=== PATIENT | male | born 1965 | race Caucasian/White ===

== ENCOUNTER → 2020-04-16 13:50 | Outpatient (BNVA) | payer OTHER, SELFPAY | PROVIDERS: PCP Internal Medicine; Visit Provider Hospitalist | DX: J44.9 Chronic obstructive pulmonary disease, unspecified (principal); J98.4 Other disorders of lung; G47.34 Idiopathic sleep related nonobstructive alveolar hypoventilation; D80.1 Nonfamilial hypogammaglobulinemia; Z86.711 Personal history of pulmonary embolism; Z79.01 Long term (current) use of anticoagulants; Z99.81 Dependence on supplemental oxygen | CPT/HCPCS: 99212 ==

== ENCOUNTER 2020-05-10 12:32 | Emergency (ER) | payer OTHER, SELFPAY ==
[2020-05-10] VITALS (7 sets, daily range): BP systolic 119–160; BP diastolic 72–107; PULSE 80–94; RESP 14–24; TEMP 36.8–36.9; O2SAT 94–100; BMI 39.9
--- NOTE | 2020-05-10 12:49 | ECG_ITS ---
Test Reason : SOB Blood Pressure : / mmHG Vent. Rate : 079 BPM Atrial Rate : 079 BPM P-R Int : 198 ms QRS Dur : 150 ms QT Int : 402 ms P-R-T Axes : 023 -57 049 degrees QTc Int : 460 ms Normal sinus rhythm Left axis deviation Non-specific intra-ventricular conduction block Abnormal ECG No previous ECGs available Referred By: Lenore Casas Electronically Signed By:VILMA DOAN MD
--- NOTE | 2020-05-10 12:49 | XR_ITS ---
EXAMINATION: XR CHEST CLINICAL INFORMATION: Right-sided chest pain COMPARISON: None TECHNIQUE: 2 views of the chest were obtained. FINDINGS: Cardiac silhouette is normal in size and hilar contours are normal. Lungs are adequately expanded. No evidence of pulmonary edema or consolidation. The right lateral and posterior costophrenic sulci are blunted, suggestive of small pleural effusion. No pneumothorax. The visualized bones are intact. XR/XR chest 2V IMPRESSION: * Small right pleural effusion. * No evidence of pneumonia, pulmonary edema or other significant pathology.
--- NOTE | 2020-05-10 12:51 | ED.ABDPAIN ---
HPI - Abdominal Pain General Chief Complaint: Abdominal Pain Stated Complaint: abd pain Time Seen by Provider: 05/10/20 12:42 Source: patient and EMS Mode of arrival: EMS History of Present Illness HPI narrative: 54-year-old male with a past medical history of COPD, diabetes, diverticulitis, gastroparesis, hyperlipidemia, HTN, PE on Xarelto, RBBB, viral meningitis, BIBA c/o worsening right sided chest/flank/RUQ pain and SOB x3 days. Admits symptoms feel similar to prior PE. Admits pain worse with palpation, movement and deep inspiration. Reports chronic nausea/vomiting and cough, unchanged. Denies D/C, fever, chills, urinary symptoms, LE edema MD elicited complaint: abdominal pain and flank pain Related Data Home Medications Medication Instructions Recorded Confirmed allopurinol 100 mg tablet 100 mg PO DAILY 04/16/20 04/16/20 amitriptyline 25 mg tablet 25 mg PO DAILY 04/16/20 04/16/20 aspirin 81 mg tablet,delayed 81 mg PO DAILY 04/16/20 04/16/20 release cyclobenzaprine 5 mg tablet 5 mg PO TID PRN 04/16/20 04/16/20 divalproex 250 mg tablet,delayed 250 mg PO BID 04/16/20 04/16/20 release dupilumab 300 mg/2 mL subcutaneous 300 mg SUBCUT Q2W 04/16/20 04/16/20 syringe furosemide 20 mg tablet 10 mg PO QAM 04/16/20 04/16/20 hydromorphone 2 mg tablet 2 mg PO Q4-6H PRN 04/16/20 04/16/20 magnesium 250 mg tablet 250 mg PO DAILY 04/16/20 04/16/20 mecobalamin (vitamin B12) 1,000 1,000 mcg PO DAILY 04/16/20 04/16/20 mcg chewable tablet ondansetron HCl 8 mg tablet 8 mg PO Q12H 04/16/20 04/16/20 propranolol 40 mg tablet 40 mg PO BID 04/16/20 04/16/20 rivaroxaban 10 mg tablet 10 mg PO DAILY 04/16/20 04/16/20 roflumilast 500 mcg tablet 500 mcg PO DAILY 04/16/20 04/16/20 semaglutide 0.5 mg SUBCUT QWEEK 04/16/20 04/16/20 trimethobenzamide 300 mg capsule 300 mg PO Q6H PRN 04/16/20 04/16/20 Allergies Allergy/AdvReac Type Severity Reaction Status Date / Time Morphine Allergy Severe Rash Uncoded 05/10/20 12:52 Review of Systems Review of Systems Constitutional: No Weight loss, No Fever, No Chills Cardiovascular: +Chest Pain, + SOB, No Dyspnea on Exertion, No Orthopnea, No Edema, No Palpitations Respiratory: +chronic Cough, No Sputum, No Wheezing Gastrointestinal: No Nausea, No Vomiting, No Diarrhea, No Constipation, + Abdominal pain Genitourinary: No irregular bleeding, No Dysuria, No Urinary Frequency, No Hematuria,+ Flank Pain Musculoskeletal: No joint pain, No Myalgias, No Joint Swelling Skin: No Skin Lesions, No rash Yes all other systems are reviewed and are negative Physical Exam Vital Signs: Vital Signs: Last Vital Signs Temp 98.2 F 05/10/20 18:09 Pulse 88 05/10/20 18:09 Resp 22 H 05/10/20 18:09 BP 119/72 05/10/20 18:09 Pulse Ox 99 05/10/20 18:09 Body Mass Index 39.9 Const: General: cooperative Nutritional Appearance: overweight Orientation/consciousness: patient oriented x3 Limitations: no limitations HENMT: Head: Yes normal to inspection Ears: hearing grossly normal bilaterally General nose exam: Normal external nose present Face and sinus: Yes normal facial exam Eyes: General: appearance normal, both eyes and all related structures EOM: EOMs intact bilaterally Neck: Neck: Yes normal visual inspection and Yes no meningeal signs Chest: Chest palpation & inspection: normal inspection of the chest, no crepitus and tenderness (right posteriorolateral ribs) Resp: Effort & Inspection: normal respiratory effort Auscultation: no crackles, no wheezes and diminished lung sounds on the right Cardio: Rate: regular rate Heart sounds: S1 normal heart sound present and S2 normal heart sound present GI: Inspection: Yes normal to inspection Palpation (GI): Soft to palpation, Tenderness to palpation present (GI) in the RUQ, no guarding and not rigid : General: Yes CVA tenderness on the right Skin: Rashes: no rashes Wounds: no wounds Neuro: General: patient oriented x3 and no meningeal signs Gait exam (Neuro): Normal gait present Extrem: Other: No LE edema or calf tenderness General: Yes normal to inspection Course Course Course Narrative: -1429--mild leukocytosis of 11.6, troponin elevated at 89.6 > no available priors (patient admits to elevated troponins in the past), no ischemic EKG changes >> will obtain 3 hour repeat >> obtain CTA to rule out PE, and dry CTAP -1728--repeat troponin 101 > no delta, NC unlikely -175--CTA without evidence of PE. No evidence of dissection. Small right pleural effusion. Subdiaphragmatic small fluid collection with sutures. Postsurgical changes on the lower anterior abdomen wall. Lab and imaging results discussed with patient including worrisome signs and symptoms and strict return precautions. Patient requesting dose of IV Toradol, admits has taken in the past with resolution of headaches/pain. I discussed with him risk of being bleeding being on Xarelto and ASA, he verbalized understanding and would still like Toradol. Discussed will not DC with prescription, but will give 1 time dose prior to DC. Patient verbalized understanding feel safe for discharge home. Patient also admits he is on oxygen at home at night MDM - Abdominal Pain MDM Narrative Medical decision making narrative: 54-year-old male with a past medical history of COPD, diabetes, diverticulitis, gastroparesis, hyperlipidemia, HTN, PE on Xarelto, RBBB, viral meningitis, BIBA c/o worsening right sided chest/flank/RUQ pain and SOB x3 days. On exam tachypneic, NAD/nontoxic appearing, lungs with decreased BS on right, +R CVAT/R rib tto and RUQ ttp. Concern for PE vs pleural effusion or pneumonia vs ?Renal stone. Plan: EKG, labs, CXR, reassess/anticipated other imaging per results Lab Data Result diagrams: 05/10/20 13:01 05/10/20 13:40 Labs: Lab Results 05/10/20 05/10/20 05/10/20 Range/Units 13:00 13:01 13:40 WBC 11.6 H (4.8-10.8) X10*3/uL RBC 4.77 (4.60-5.80) X10*6/uL Hgb 13.3 L (14.0-18.0) g/dl Hct 39.9 L (42-52) % MCV 83.6 (80-98) fL MCH 27.9 (27.0-33.0) pg MCHC 33.3 (31.0-36.0) g/dl RDW 14.6 (11.0-16.0) % Plt Count TNP MPV Not Reportable Immature Gran % (Auto) 0.5 H (0.0-0.4) % Neut % (Auto) 76.0 H (45-73) % Lymph % (Auto) 11.2 L (20-40) % [place] % (Auto) 7.6 (2-11) % Eos % (Auto) 3.8 (0-4) % Baso % (Auto) 0.9 (0-2) % Lymph # (Auto) 1.3 (1.2-4.9) X10*3/uL [place] # (Auto) 0.9 (0.1-1.2) X10*3/uL Eos # (Auto) 0.4 (0.0-0.4) X10*3/uL Baso # (Auto) 0.1 (0.0-0.2) X10*3/uL Abs Immat Gran (auto) 0.06 H (0.00-0.03) X10*3/uL Absolute Neuts (auto) 8.8 H (2.0-8.3) X10*3/uL Absolute Nucleated RBC 0.000 (0.0-0.012) X10*3/uL Nucleated RBC % (auto) 0.0 (0.0-0.2) /100WBC PT Cancelled INR Cancelled APTT Cancelled D-Dimer Cancelled Sodium Cancelled Potassium Cancelled Chloride Cancelled Carbon Dioxide Cancelled Anion Gap Cancelled BUN Cancelled Creatinine Cancelled Estim Creat Clear Calc Cancelled Estimated GFR Cancelled Random Glucose Cancelled Calcium Cancelled Magnesium Cancelled Total Bilirubin Cancelled Direct Bilirubin Cancelled AST Cancelled ALT Cancelled Alkaline Phosphatase Cancelled Troponin I High Sens (<3.5-35.0) ng/L B-Natriuretic Peptide (<100) pg/mL Total Protein Cancelled Albumin Cancelled Lipase Cancelled 05/10/20 05/10/20 05/10/20 Range/Units 13:40 13:40 15:27 WBC (4.8-10.8) X10*3/uL RBC (4.60-5.80) X10*6/uL Hgb (14.0-18.0) g/dl Hct (42-52) % MCV (80-98) fL MCH (27.0-33.0) pg MCHC (31.0-36.0) g/dl RDW (11.0-16.0) % Plt Count MPV Immature Gran % (Auto) (0.0-0.4) % Neut % (Auto) (45-73) % Lymph % (Auto) (20-40) % [place] % (Auto) (2-11) % Eos % (Auto) (0-4) % Baso % (Auto) (0-2) % Lymph # (Auto) (1.2-4.9) X10*3/uL [place] # (Auto) (0.1-1.2) X10*3/uL Eos # (Auto) (0.0-0.4) X10*3/uL Baso # (Auto) (0.0-0.2) X10*3/uL Abs Immat Gran (auto) (0.00-0.03) X10*3/uL Absolute Neuts (auto) (2.0-8.3) X10*3/uL Absolute Nucleated RBC (0.0-0.012) X10*3/uL Nucleated RBC % (auto) (0.0-0.2) /100WBC PT INR APTT Cancelled D-Dimer Cancelled Sodium 131 L Potassium 4.6 Chloride 99 Carbon Dioxide 21 L Anion Gap 16 BUN 8 L Creatinine 0.82 Estim Creat Clear Calc 156.4 Estimated GFR > 60 Random Glucose 217 H Calcium 8.6 Magnesium 1.8 Total Bilirubin 0.6 Direct Bilirubin 0.2 AST 12 ALT 10 Alkaline Phosphatase 94 Troponin I High Sens 89.6 H (<3.5-35.0) ng/L B-Natriuretic Peptide < 10 (<100) pg/mL Total Protein 7.0 Albumin 3.7 Lipase 16 05/10/20 05/10/20 Range/Units 15:27 15:58 WBC (4.8-10.8) X10*3/uL RBC (4.60-5.80) X10*6/uL Hgb (14.0-18.0) g/dl Hct (42-52) % MCV (80-98) fL MCH (27.0-33.0) pg MCHC (31.0-36.0) g/dl RDW (11.0-16.0) % Plt Count MPV Immature Gran % (Auto) (0.0-0.4) % Neut % (Auto) (45-73) % Lymph % (Auto) (20-40) % [place] % (Auto) (2-11) % Eos % (Auto) (0-4) % Baso % (Auto) (0-2) % Lymph # (Auto) (1.2-4.9) X10*3/uL [place] # (Auto) (0.1-1.2) X10*3/uL Eos # (Auto) (0.0-0.4) X10*3/uL Baso # (Auto) (0.0-0.2) X10*3/uL Abs Immat Gran (auto) (0.00-0.03) X10*3/uL Absolute Neuts (auto) (2.0-8.3) X10*3/uL Absolute Nucleated RBC (0.0-0.012) X10*3/uL Nucleated RBC % (auto) (0.0-0.2) /100WBC PT 13.0 INR 1.1 APTT D-Dimer Sodium Potassium Chloride Carbon Dioxide Anion Gap BUN Creatinine Estim Creat Clear Calc Estimated GFR Random Glucose Calcium Magnesium Total Bilirubin Direct Bilirubin AST ALT Alkaline Phosphatase Troponin I High Sens 101.1 H (<3.5-35.0) ng/L B-Natriuretic Peptide (<100) pg/mL Total Protein Albumin Lipase Discharge Plan Discharge Clinical Impression: Pleural effusion on right, Chest pain Patient Disposition: Home, Self-Care Instructions: Pleural Effusion (ED) Additional Instructions: Your CT scan did not show a PE, however did show fluid in your right lung Otherwise her blood work was reassuring today in the ED Continue taking previously prescribed medications at home Called Dr. Mclain, your solar energy systems designer in the morning, to make an appointment as soon as possible If her symptoms persist or worsen, pain becomes unbearable, you develop constant worsening shortness of breath, or chest pain return to the ED Prescriptions: No Action Xarelto 10 mg tablet 10 mg PO DAILY RF: 0 Daliresp 500 mcg tablet 500 mcg PO DAILY RF: 0 magnesium 250 mg tablet 250 mg PO DAILY RF: 0 aspirin 81 mg tablet,delayed release (DR/EC) 81 mg PO DAILY RF: 0 ondansetron HCl 8 mg tablet 8 mg PO Q12H RF: 0 hydromorphone [Dilaudid] 2 mg tablet 2 mg PO Q4-6H PRNRF: 0 mecobalamin (vitamin B12) 1,000 mcg tablet,chewable 1,000 mcg PO DAILY RF: 0 propranolol 40 mg tablet 40 mg PO BID RF: 0 furosemide 20 mg tablet 10 mg PO QAM RF: 0 allopurinol 100 mg tablet 100 mg PO DAILY RF: 0 Ozempic 0.25 mg or 0.5 mg(2 mg/1.5 mL) pen injector 0.5 mg subcut QWEEK RF: 0 trimethobenzamide [Tigan] 300 mg capsule 300 mg PO Q6H PRNRF: 0 Dupixent Syringe 300 mg/2 mL syringe 300 mg subcut Q2W RF: 0 amitriptyline 25 mg tablet 25 mg PO DAILY RF: 0 cyclobenzaprine 5 mg tablet 5 mg PO TID PRNRF: 0 divalproex [Depakote] 250 mg tablet,delayed release (DR/EC) 250 mg PO BID RF: 0 Referrals: Russell Mclain MD [Physician] - 2 days [facility] Past Medical History Source: nursing notes reviewed Medical History (Updated 05/10/20 @ 18:10 by KI Francis) Brain tumor Cholecystectomy planned Chronic restrictive lung disease COPD (chronic obstructive pulmonary disease) Diabetes Diverticulitis Gastroparesis Gout High cholesterol HTN (hypertension) Hypogammaglobulinemia Nocturnal hypoxemia Pulmonary emboli 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) Viral meningitis Surgical History (Updated 05/10/20 @ 12:51 by Shirley Mercedes) History of colon resection Hx of appendectomy Status post plication of diaphragm Family History Family History (Updated 04/16/20 @ 21:18 by Russell Mclain MD) Other HTN (hypertension) Social History Social History (Updated 04/16/20 @ 14:42 by Serenity Herring MA) Alcohol intake: never Smoking Status: Never smoker Smoked in Last 30 Days: No Use of substances other than those prescribed or required for medical reasons: No Advance Directives: No Advance Directives Information Provided: Yes
[2020-05-10 13:09] LABS: Basophils Percent Auto 0.9 % (0-2); Imm Gran Abs Auto 0.06 X10*3/uL (0.00-0.03); Imm Gran Pct Auto 0.5 % (0.0-0.4); Mean Corpuscular HGB Conc 33.3 g/dl (31.0-36.0); Mean Corpuscular Volume 83.6 fL (80-98); Monocytes Percent Auto 7.6 % (2-11); PLT CLUMP 1; SCAN SMEAR FLAG 1
[2020-05-10 13:10] LABS: MANUAL DIFF FLAG NO
[2020-05-10 13:11] LABS: Basophils Absolute Auto 0.1 X10*3/uL (0.0-0.2); Eosinophils Absolute Auto 0.4 X10*3/uL (0.0-0.4); Eosinophils Percent Auto 3.8 % (0-4); Hematocrit 39.9 % (42-52); Hemoglobin 13.3 g/dl (14.0-18.0); Lymphocytes Absolute Auto 1.3 X10*3/uL (1.2-4.9); Lymphocytes Percent Auto 11.2 % (20-40); Mean Corpuscular Hemoglobin 27.9 pg (27.0-33.0); Monocytes Absolute Auto 0.9 X10*3/uL (0.1-1.2); Neutrophils Absolute Auto 8.8 X10*3/uL (2.0-8.3); Red Blood Count 4.77 X10*6/uL (4.60-5.80); Red Cell Distribution Width 14.6 % (11.0-16.0); White Blood Count 11.6 X10*3/uL (4.8-10.8)
[2020-05-10] MEDS: HYDROmorphone HCl 1 MG/ML SYRINGE IVPUSH ×2 (13:20→15:39)
[2020-05-10 14:15] LABS: Alanine Aminotransferase 10 U/L (0-40); Albumin Level 3.7 g/dL (3.5-5.0); Alkaline Phosphatase 94 U/L (39-117); Anion Gap 16 (12-20); Aspartate Amino Transferase 12 U/L (5-37); Bilirubin Direct 0.2 mg/dL (0.0-0.5); Bilirubin Total 0.6 mg/dL (0.0-1.0); Blood Urea Nitrogen 8 mg/dL (9-16); Calcium 8.6 mg/dL (8.4-10.2); Carbon Dioxide 21 mmol/L (22-29); Chloride 99 mmol/L (96-108); Creatinine Clr Calc Pharmacy 156.4; Estimated Glomerular Filt Rate > 60; Glucose Random 217 mg/dL (60-115); Lipase 16 U/L (8-78); Magnesium 1.8 mg/dL (1.6-2.6); Potassium 4.6 mmol/l (3.3-5.1); Sodium 131 mmol/L (135-145)
[2020-05-10 14:23] LABS: B Type Natriuretic Peptide < 10 pg/mL (<100); Troponin-I High Sensitivity 89.6 ng/L (<3.5-35.0)
--- NOTE | 2020-05-10 14:33 | CT_ITS ---
EXAMINATION: CTA CHEST. CT ABDOMEN AND PELVIS WITHOUT CONTRAST. CLINICAL INFORMATION: Right pleural effusion. Chest pain. Rule out PE. Right flank pain. COMPARISON: None TECHNIQUE: 5 minutes and axial and reformatted 3 mm thin coronal and sagittal and oblique views of chest were obtained following IV 100 mL Omnipaque 350. Subsequently 5 minutes and axial and reformatted 3 mm thin sagittal coronal images of abdomen and pelvis were obtained. DLP [id number] FINDINGS: CHEST: There is good opacification bariatric transvaginal without any intraluminal filling defect or narrowing. The thoracic aorta is of normal caliber. No aortic dissection or effusion seen. The heart size is normal. There is mild coronary artery calcifications. No pericardial effusion seen. No abnormal size mediastinal lymph nodes. The thyroid lobes are symmetrical and normal. The central airway appears patent. There is small right pleural effusion. No calcified pleural plaques or thickening seen. The lungs are well-expanded patchy atelectatic changes right lung base. The axilla and chest wall appears normal. No bony thorax abnormality seen. ABDOMEN AND PELVIS: There are post surgical sutures are mesh in the right subdiaphragmatic region with soft tissue density likely postoperative changes/granulation tissue. The soft tissue collection measures 6.5 x 2.8 cm on sagittal image number 100/11. There is mild elevated right hemidiaphragm. The left hemidiaphragm is unremarkable. Visualized liver, spleen, pancreas and bilateral adrenal glands are unremarkable. The gallbladder has been surgically removed. There is an anastomotic suture line in the mid pelvis likely from previous intervention. Scattered stool and gas visualized throughout the colon without any significant distention. The small bowel loops are of normal caliber. A few scattered nondilated small bowel air-fluid levels in the mid pelvis anterior to the bladder. There are surgical margarita scattered throughout the mesentery. No free air or free fluid seen. Postsurgical changes are seen along the anterior abdominal wall. There is small midabdomen wall dehiscence with small hernia containing fat. The neck is 2.4 cm wide. Both kidneys are normal size, shape and position. There is normal radiopaque renal calculi, renal mass or hydronephrosis. The right kidney is transversely oriented in AP direction. Minimal bilateral perinephric stranding is seen. The abdominal aorta is normal caliber. There are small punctate subcentimeter retroperitoneal lymph nodes. Largest 9 mm lymph node left para-aortic region image 40/8. Imaging through the pelvis reveals unremarkable urinary bladder the prostate gland is normal size with central gland calcifications. Bone windows reveal mild ventral spondylosis lower dorsal spine. No lytic or sclerotic process seen. CT/CT angio chest PE protocol IMPRESSION: No evidence of PE. No evidence of aortic dissection. There is a small right pleural effusion. There is a subdiaphragmatic small fluid collection with sutures. Fluid collection measures 6.5 x 2.8 cm. Previous intervention, postsurgical changes. Correlate with clinical history. Postsurgical changes along the lower anterior abdominal wall. There is a small midline mid abdominal wall hernia containing fat. There is an anastomotic suture line along the proximal sigmoid/descending colon with patent lumen. There are surgical margarita scattered throughout the mesentery from previous intervention/lymph node dissection. Correlate with clinical history.
--- NOTE | 2020-05-10 15:30 | PC.NURSE ---
Pt difficult stick, multiple rns at bedside, Jayce rn obtained 20g to l ac w/ U/S. Plan for CTA, pt aware and agreeable. Requesting medication for increasing R sided flank/upper back pain, provider aware.
[2020-05-10 15:46] LABS: INTERNATIONAL NORM RATIO 1.1 (0.9-1.1)
[2020-05-10 16:39] LABS: Troponin-I High Sensitivity 101.1 ng/L (<3.5-35.0)
--- NOTE | 2020-05-10 16:56 | PC.NURSE ---
Previous Iv infiltrated in L ac, removed and gina forte placed 20g r ac. pt back from ct- resting in bed, denies needs or complaints,
[2020-05-10] MEDS: iohexoL 350 MG/ML 100 ML INFUS..BTL IV (16:58)
[2020-05-10 18:20] LABS: Glucose Urine UA NEG (NEG); Leukocyte Esterase Urine NEG (NEG); Nitrite Urine NEG (NEG); PH 6.5 (5.0-8.0); Urine Blood NEG (NEG); Urine Ketones NEG (NEG); Urine Protein NEG (NEG-TRACE)
[2020-05-10 18:22] LABS: Appearance Urine CLEAR; Color Urine YELLOW
[2020-05-10] MEDS: Ketorolac Tromethamine 15 MG/ML VIAL IVPUSH (18:28)
[2020-05-10 18:36] LABS: D Dimer 249 NG/ML
[2020-05-10 18:42] LABS: Partial Thromboplastin Time 22.9 SEC (24.1-38.0)
== END 2020-05-10 18:36 | disposition home or self-care (01) ==
PROVIDERS: Physician Assistant; Emergency Provider Internal Medicine; PCP Internal Medicine
DX: J90 Pleural effusion, not elsewhere classified (principal); J44.9 Chronic obstructive pulmonary disease, unspecified; R10.11 Right upper quadrant pain; R07.9 Chest pain, unspecified; Z79.899 Other long term (current) drug therapy; Z79.01 Long term (current) use of anticoagulants; Z86.711 Personal history of pulmonary embolism
CPT/HCPCS: 36415; 71046; 71275; 74176; 80048; 80076; 81003; 83690; 83735; 83880; 84484; 85025; 85379; 85610; 85730; 93005; 96374; 96375; 96376; 99284; J1170; J1885; Q9967

== ENCOUNTER 2020-05-14 14:41 | Outpatient (REF) | payer OTHER, SELFPAY ==
--- NOTE | 2020-05-14 16:02 | XR_ITS ---
EXAMINATION: XR CHEST CLINICAL INFORMATION: Chest pain. COMPARISON: None TECHNIQUE: 2 views of the chest were obtained. FINDINGS: The right lung is hyperexpanded with mild blunting of right CP angle from pleural thickening or pleural effusion. Patient did have pleural effusion on previous CT chest 05/10/2020. There is likely underlying atelectasis as well. Left lung is expanded and clear. The heart size and pulmonary vascularity is normal. No gross bony abnormality seen. XR/XR chest 2V IMPRESSION: Hypoexpanded right lung with underlying right pleural effusion/thickening and minimal atelectasis.
[2020-05-14 16:18] LABS: MANUAL DIFF FLAG NO
[2020-05-14 16:21] LABS: Basophils Absolute Auto 0.1 X10*3/uL (0.0-0.2); Basophils Percent Auto 0.8 % (0-2); Eosinophils Absolute Auto 0.5 X10*3/uL (0.0-0.4); Eosinophils Percent Auto 4.9 % (0-4); Hematocrit 44.1 % (42-52); Hemoglobin 14.5 g/dl (14.0-18.0); Imm Gran Abs Auto 0.05 X10*3/uL (0.00-0.03); Imm Gran Pct Auto 0.5 % (0.0-0.4); Lymphocytes Absolute Auto 1.5 X10*3/uL (1.2-4.9); Lymphocytes Percent Auto 16.1 % (20-40); Mean Corpuscular HGB Conc 32.9 g/dl (31.0-36.0); Mean Corpuscular Hemoglobin 27.2 pg (27.0-33.0); Mean Corpuscular Volume 82.6 fL (80-98); Mean Platelet Volume 9.2 fL (9.4-12.4); Monocytes Absolute Auto 0.7 X10*3/uL (0.1-1.2); Monocytes Percent Auto 7.4 % (2-11); Neutrophils Absolute Auto 6.6 X10*3/uL (2.0-8.3); Neutrophils Percent Auto 70.3 % (45-73); Platelet Count 532 X10*3/uL (160-400); Red Blood Count 5.34 X10*6/uL (4.60-5.80); Red Cell Distribution Width 14.6 % (11.0-16.0); White Blood Count 9.4 X10*3/uL (4.8-10.8)
[2020-05-14 16:36] LABS: Anion Gap 15 (12-20); Blood Urea Nitrogen 12 mg/dL (9-16); Calcium 10.1 mg/dL (8.4-10.2); Carbon Dioxide 24 mmol/L (22-29); Chloride 99 mmol/L (96-108); Estimated Glomerular Filt Rate > 60; Glucose Random 229 mg/dL (60-115); Potassium 4.7 mmol/l (3.3-5.1); Sodium 133 mmol/L (135-145)
[2020-05-14 17:20] LABS: Erythrocyte Sedimentation Rate 62 MM/HR (0-15)
[2020-05-14 18:17] LABS: Troponin-I High Sensitivity 89.4 ng/L (<3.5-35.0)
== END 2020-05-14 14:42 | disposition home or self-care (01) ==
LOC: HO.LAB 14:41
PROVIDERS: PCP Internal Medicine; Visit Provider Hospitalist
DX: R07.9 Chest pain, unspecified (principal); D80.1 Nonfamilial hypogammaglobulinemia; J44.9 Chronic obstructive pulmonary disease, unspecified; G47.34 Idiopathic sleep related nonobstructive alveolar hypoventilation; I26.99 Other pulmonary embolism without acute cor pulmonale; J98.4 Other disorders of lung; J98.6 Disorders of diaphragm; J18.9 Pneumonia, unspecified organism; J90 Pleural effusion, not elsewhere classified
CPT/HCPCS: 36415; 71046; 80048; 84484; 85025; 85652; 99212

== ENCOUNTER 2020-05-14 18:46 | Emergency (ER) | payer OTHER, SELFPAY ==
[2020-05-14 19:29] VITALS: BP 147/81; PULSE 78; RESP 18; TEMP 36.7; O2SAT 97; BMI 38.0
--- NOTE | 2020-05-14 20:39 | ED.RECABL ---
HPI - Recheck/Abnormal Lab/Rx General Chief Complaint: Recheck/Abnormal Lab/Rx Stated Complaint: ABNORMAL LABS Time Seen by Provider: 05/14/20 20:39 Source: patient Mode of arrival: ambulatory Limitations: no limitations History of Present Illness HPI narrative: patient with chronic Restrictive lung condition followed by her ammonium nitrate crystallizer been having right-sided chest pain for a while was seen here on 05/10 had elevated high sensitive troponin without any significant delta change today again patient had troponin done as outpatient which was elevated to 89.4 on 05/10 was 101.1 patient denies any left-sided chest pain no shortness of breath no diaphoresis no left arm pain pain increases on deep inspiration and palpation on the right side similar to when he came on 05/10 patient had a history of PE in the past and had CTA on 05/10 which was negative for PE , patient is on Xarelto Related Data Home Medications Medication Instructions Recorded Confirmed allopurinol 100 mg tablet 100 mg PO DAILY 04/16/20 04/16/20 amitriptyline 25 mg tablet 25 mg PO DAILY 04/16/20 04/16/20 aspirin 81 mg tablet,delayed 81 mg PO DAILY 04/16/20 04/16/20 release cyclobenzaprine 5 mg tablet 5 mg PO TID PRN 04/16/20 04/16/20 divalproex 250 mg tablet,delayed 250 mg PO BID 04/16/20 04/16/20 release dupilumab 300 mg/2 mL subcutaneous 300 mg SUBCUT Q2W 04/16/20 04/16/20 syringe furosemide 20 mg tablet 10 mg PO QAM 04/16/20 04/16/20 hydromorphone 2 mg tablet 2 mg PO Q4-6H PRN 04/16/20 04/16/20 magnesium 250 mg tablet 250 mg PO DAILY 04/16/20 04/16/20 mecobalamin (vitamin B12) 1,000 1,000 mcg PO DAILY 04/16/20 04/16/20 mcg chewable tablet ondansetron HCl 8 mg tablet 8 mg PO Q12H 04/16/20 04/16/20 propranolol 40 mg tablet 40 mg PO BID 04/16/20 04/16/20 rivaroxaban 10 mg tablet 10 mg PO DAILY 04/16/20 04/16/20 roflumilast 500 mcg tablet 500 mcg PO DAILY 04/16/20 04/16/20 semaglutide 0.5 mg SUBCUT QWEEK 04/16/20 04/16/20 trimethobenzamide 300 mg capsule 300 mg PO Q6H PRN 04/16/20 04/16/20 Previous Rx's Medication Instructions Recorded levofloxacin 500 mg tablet 500 mg PO DAILY #10 tab 05/14/20 Allergies Allergy/AdvReac Type Severity Reaction Status Date / Time Morphine Allergy Severe Rash Uncoded 05/10/20 12:52 Review of Systems Review of Systems: REVIEW OF SYSTEMS: Pertinent positives and negatives are stated above in the history. GEN: no fevers, chills, fatigue HEENT: no nasal congestion, sore throat, ear pain NEURO: no headache, dizziness, focal weakness PULM: no cough, shortness of breath CV: no palpitations, LE edema ABD: no abdominal pain, nausea, vomiting, diarrhea : no dysuria, urgency, frequency SKIN: no rash ROS otherwise negative x 10 PMFSH Past Medical History Medical History Brain tumor Chest pain Cholecystectomy planned Chronic restrictive lung disease COPD (chronic obstructive pulmonary disease) Diabetes Diverticulitis Gastroparesis Gout High cholesterol HTN (hypertension) Hypogammaglobulinemia Nocturnal hypoxemia Paralysis, diaphragm Pleural effusion Pneumonia Pulmonary emboli 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) Viral meningitis Surgical History History of colon resection Hx of appendectomy Status post plication of diaphragm Family History Family History Other HTN (hypertension) Social History Social History Alcohol intake: never Smoking Status: Unknown if ever smoked Use of substances other than those prescribed or required for medical reasons: No Advance Directives: No Advance Directives Information Provided: Yes Physical Exam Vital Signs: Vital Signs: Last Vital Signs Temp 98.3 F 05/14/20 21:13 Pulse 99 05/14/20 22:32 Resp 16 05/14/20 22:32 BP 162/94 H 05/14/20 22:32 Pulse Ox 99 05/14/20 22:32 Body Mass Index 38.0 VITAL SIGNS: Reviewed. GENERAL: Well developed, well nourished, in no acute distress. HEAD: Normocephalic/atraumatic, EYES: PERRLA No pallor/icterus noted OROPHARYNX: Oral mucosa moist no oral lesions NECK: Supple, no adenopathy LUNGS: Normal breath sounds. No adventitious sounds or accessory muscle use tenderness on the right lower ribs by palpation CARDIOVASCULAR: Regular rate and rhythm without noted murmurs, no JVD or lower extremity edema. ABDOMEN: Soft, non-tender, non-distended with normal bowel sounds. No rigidity. No guarding. No palpable masses or hernias noted MUSCULOSKELETAL: No tenderness, deformities, EXTREMITIES: No cyanosis or edema. SKIN: no rashes, ulcerations, jaundice, pallor NEUROLOGIC: Alert and oriented x 3. Strength and sensation to light touch were grossly intact normal speech MDM - Recheck/Abnormal Lab/Rx MDM Narrative Medical decision making narrative: patient with atypical pain on the right side of the chest for last few days had multiple sets of troponin which were without any significant delta increase patient has a plan to see fuselage framer at [facility] advised to follow-up with him already on Xarelto Medical Records Attestation: I reviewed the patient's medical records. Lab Data Attestation: I reviewed the patient's lab results. Labs: Lab Results 05/14/20 Range/Units 21:15 Troponin I High Sens 85.2 H (<3.5-35.0) ng/L ECG Data ECG interpretation date: 05/14/20 Interpretation: normal sinus rhythm ventricular rate 89 right bundle branch block left anterior fascicular block, normal axis, no acute ischemic changes impression no acute change from EKG on 05/10 Discharge Plan Discharge Clinical Impression: Chest pain Patient Disposition: Home, Self-Care Instructions: Chest Pain (ED) Additional Instructions: Follow-up with fuselage framer as scheduled for further workup. Prescriptions: No Action Xarelto 10 mg tablet 10 mg PO DAILY RF: 0 Daliresp 500 mcg tablet 500 mcg PO DAILY RF: 0 magnesium 250 mg tablet 250 mg PO DAILY RF: 0 aspirin 81 mg tablet,delayed release (DR/EC) 81 mg PO DAILY RF: 0 ondansetron HCl 8 mg tablet 8 mg PO Q12H RF: 0 hydromorphone [Dilaudid] 2 mg tablet 2 mg PO Q4-6H PRNRF: 0 mecobalamin (vitamin B12) 1,000 mcg tablet,chewable 1,000 mcg PO DAILY RF: 0 propranolol 40 mg tablet 40 mg PO BID RF: 0 furosemide 20 mg tablet 10 mg PO QAM RF: 0 allopurinol 100 mg tablet 100 mg PO DAILY RF: 0 Ozempic 0.25 mg or 0.5 mg(2 mg/1.5 mL) pen injector 0.5 mg subcut QWEEK RF: 0 trimethobenzamide [Tigan] 300 mg capsule 300 mg PO Q6H PRNRF: 0 Dupixent Syringe 300 mg/2 mL syringe 300 mg subcut Q2W RF: 0 amitriptyline 25 mg tablet 25 mg PO DAILY RF: 0 cyclobenzaprine 5 mg tablet 5 mg PO TID PRNRF: 0 divalproex [Depakote] 250 mg tablet,delayed release (DR/EC) 250 mg PO BID RF: 0 levofloxacin 500 mg tablet 500 mg PO DAILY Qty: 10 RF: 0 Interventions: ED Discharge Assessment Last Done: 05/14/20 22:46 Discharge Date/Time: 05/14/20 22:45
--- NOTE | 2020-05-14 20:41 | ECG_ITS ---
Test Reason : CP Blood Pressure : / mmHG Vent. Rate : 089 BPM Atrial Rate : 089 BPM P-R Int : 176 ms QRS Dur : 154 ms QT Int : 412 ms P-R-T Axes : 011 -83 044 degrees QTc Int : 501 ms Normal sinus rhythm Right bundle branch block Left anterior fascicular block Bifascicular block Lateral infarct (cited on or before 14-MAY-2020) Abnormal ECG When compared with ECG of 10-MAY-2020 13:11, Right bundle branch block has replaced Non-specific intra-ventricular conduction block Referred By: Dru Villalpando Electronically Signed By:HERNAN ASHLEY MD
[2020-05-14 21:13] VITALS: BP 148/80; PULSE 88; RESP 25; TEMP 36.8; O2SAT 95
[2020-05-14 21:57] LABS: Troponin-I High Sensitivity 85.2 ng/L (<3.5-35.0)
[2020-05-14 22:32] VITALS: BP 162/94; PULSE 99; RESP 16; O2SAT 99
== END 2020-05-14 22:45 | disposition home or self-care (01) ==
PROVIDERS: Emergency Provider Internal Medicine
DX: R07.9 Chest pain, unspecified (principal); Z86.711 Personal history of pulmonary embolism; Z79.01 Long term (current) use of anticoagulants; Z79.82 Long term (current) use of aspirin
CPT/HCPCS: 84484; 93005; 99283; 99284

== ENCOUNTER → 2020-05-22 13:48 | Outpatient (BNVA) | payer OTHER, SELFPAY | PROVIDERS: PCP Internal Medicine; Visit Provider Hospitalist | DX: J90 Pleural effusion, not elsewhere classified (principal); J18.9 Pneumonia, unspecified organism; J98.6 Disorders of diaphragm; J98.4 Other disorders of lung; R07.9 Chest pain, unspecified; G47.34 Idiopathic sleep related nonobstructive alveolar hypoventilation; I26.99 Other pulmonary embolism without acute cor pulmonale; D80.1 Nonfamilial hypogammaglobulinemia; J44.9 Chronic obstructive pulmonary disease, unspecified | CPT/HCPCS: 99212 ==

== ENCOUNTER → 2022-06-14 09:01 | Outpatient (BNVA) | payer OTHER, SELFPAY | PROVIDERS: PCP Internal Medicine; Visit Provider Hospitalist | DX: G47.33 Obstructive sleep apnea (adult) (pediatric) (principal); G47.34 Idiopathic sleep related nonobstructive alveolar hypoventilation; J44.9 Chronic obstructive pulmonary disease, unspecified; J98.4 Other disorders of lung; J98.6 Disorders of diaphragm; D80.1 Nonfamilial hypogammaglobulinemia; I26.99 Other pulmonary embolism without acute cor pulmonale; R07.9 Chest pain, unspecified | CPT/HCPCS: 99212 ==

== ENCOUNTER → 2022-08-10 22:26 | Outpatient (REF) | payer OTHER, SELFPAY | LOC: HO.SL 22:26 | PROVIDERS: PCP Internal Medicine; Visit Provider Hospitalist | DX: G47.33 Obstructive sleep apnea (adult) (pediatric) (principal); G47.34 Idiopathic sleep related nonobstructive alveolar hypoventilation | CPT/HCPCS: 95810 ==

== ENCOUNTER → 2022-09-14 11:19 | Outpatient (BNVA) | payer OTHER, SELFPAY | PROVIDERS: PCP Internal Medicine; Visit Provider Hospitalist | DX: G47.33 Obstructive sleep apnea (adult) (pediatric) (principal); J98.6 Disorders of diaphragm; J44.9 Chronic obstructive pulmonary disease, unspecified; J98.4 Other disorders of lung; R07.9 Chest pain, unspecified; I26.99 Other pulmonary embolism without acute cor pulmonale; D80.1 Nonfamilial hypogammaglobulinemia | CPT/HCPCS: 99212 ==

== ENCOUNTER 2023-05-03 09:05 | Outpatient (AMB) | payer OTHER, SELFPAY ==
--- NOTE | 2023-05-03 09:12 | A.OFFVIS_ITS ---
Intake Vital Signs 05/03/23 09:13 Height 6 ft 3 in Weight 255 lb BMI 31.9 BP 132/70 Blood Pressure Location Lt brachial Position Sitting Pulse 90 Pulse Source Pulse Oximeter Pulse Oximetry (%) 97 Oxygen Delivery Method Room Air Intake Visit Reasons: Obstructive sleep apnea Edge [employer] Required: No Allergies Morphine Allergy (Severe, Uncoded 05/03/23 09:15) Rash HPI HPI Comments History of Present Illness Details The patient is a 57-year-old gentleman here for pulmonary follow-up visit. 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 More recently he was admitted to [facility] diagnosed with viral meningitis. Per report the patient has stated that he developed varicella meningitis. He was treated with antiviral therapy and now is better. But, suffering from significant headaches. He is on numerous medications for the headaches and only partial improvement of the symptoms. Having hard time sleeping. While he was in the hospital he did have his blood work done including IgG level that was significantly low. We did go to the other laboratory symptoms of [place] demonstrating again significant decrease of the IgG level suggesting an immunodeficiency. The patient has been getting recurrent respiratory infections and now with significant meningitis. The patient will benefit from IVIG therapy. I will recheck all his antibody levels at this time. The patient does have a gammopathy history followed by Hematology. 05/14/2020 the patient is [facility]. He has been complaining worsening pleuritic right-sided chest discomfort. Moderate to severe. It actually was so severe that he had to come to the ER. He was evaluated here. He did have blood work done demonstrating an elevated D-dimer and also demonstrated a significantly elevated troponin I. The patient did have an EKG which showed abnormalities. He also had a CTA that was negative for PE although he did have a right-sided pleural effusion along with a small area of airspace disease. This pain likely related to underlying pleuritic discomfort from the pleural effusion and pleurisy. I am concerned that he had of significantly elevated troponin I. Because of the shortness of breath that has been having along with discomfort I did have him go for a 6 minutes walk test. His oxygenation did drop to 88% after 2 minutes walking. His heart rate was in the low 100s. He was placed on 2 L and his oxygen with activity improved to about 94%. The patient at this time requires oxygen. This is likely due to his COPD and history of thromboembolic disease. I will have a repeat the troponin I. If the troponin I continues to be elevated I will refer him to the ER. Otherwise he knows to call his vocational auto body instructor. Will also treating for a underlying lower respiratory infection. 05/22/2020 the patient is here for nirav bryant follow-up visit. When we last spoke she did have elevations in his cardiac enzymes and I did recommend he go to the ER. Initially came here and then to [facility]. He was briefly admitted to the hospital and seen by his vocational auto body instructor. He was found to be stable from a cardiac standpoint. In the meantime he was treated with antibiotics for what appeared to be a right lower lobe pneumonia with a parapneumonic effusion. Currently still feeling a little discomfort in the chest area but overall he is feeling better. He continues use the oxygen with good effect at nighttime. However, he still waiting for his portable tanks from the [employer]. Therefore I did call the [employer] to try to facilitate the delivery of portable tanks and hopefully a small conserving device that he could use outside of the home. 06/14/2022 the patient is here for a nirav bryant follow-up visit. He has been complaining of increasing shortness of breath and dizziness. Moderate severity. Recently he was hospitalized at [facility] after having chest pains and abnormal EKG concerning with a non ST elevation ID. He has was transferred over to [facility] where he underwent a cardiac catheterization. No evidence of any obstructive coronary artery disease. However, the patient noticed to have severe hypertrophic Changes to the left ventricle. The echo ruled out the possibility of a outflow obstruction. Currently plan to undergo an MRI of the heart to assess for infiltrative cardiac conditions including amyloidosis. In the meantime the patient stands that untreated sleep apnea can resulting worsening cardiovascular disease. He does have underlying sleep apnea history. He has significant snoring and significant daytime drowsiness. In view of his heart disease I am requesting an in-lab sleep study. His [place] score is elevated 06/04. 09/14/2022 the patient is here for a nirav bryant follow-up visit. Overall he is feeling a lot better. He has been very motivated about losing weight. He is eating eating lasting trying to exercise. Still gets very winded with activity. He did have his cardiac MRI demonstrating hypertrophic cardiomyopathy. Exp lained to him that he needs to make sure that his heart rate stays within the target range to minimize on his worsening shortness of breath. As far as his sleep is better now that he has lost weight. His [place] score is better 6/24. His in-lab sleep study was suboptimal at the patient had a hard time sleeping. Although his AHI was within normal limits at 2.1 any actually did not desaturate which is reassuring. The patient still using Daliresp. The Daliresp medications been affecting beneficial and has helped his respiratory status dramatically. Therefore I believe is important for him to continue. He continues on the anticoagulation therapy without any adverse effects. Otherwise patient is doing well will follow-up in a year's time. 05/03/2023 the patient is here for a pul [facility] follow-up visit. The patient overall has been doing fair. He has been weaning off his hydromorphone and therefore has had a lot of adjustment because of that. But he is happy that he is weaning off at this time. From a respiratory status the patient is doing well. He continues on the Daliresp which is helping with his chronic bronchitis and also has his rescue inhaler. He was recently admitted to [facility] back in February after developing COVID. The patient was able to recover fairly quickly and now is back to his baseline. He is sleeping well he is not using any CPAP. He is using the trazodone for sleep aid. He is having significant neuropathic pain that is also affecting his sleep therefore will add gabapentin to his sleep regimen. Hopefully he can tolerate 300 mg and is not increase to 600 mg. She she continues on Xarelto for the anticoagulation for the history of pulmonary emboli. This will be a lifelong as long as he can tolerate it. Otherwise patient is without any other complaints. [facility] Medical History (Updated 05/06/23 @ 17:48 by Russell Mclain MD) Nocturnal hypoxia TAMIKA (obstructive sleep apnea) Pleural effusion Pneumonia Paralysis, diaphragm Chest pain Gout Diabetes High cholesterol HTN (hypertension) Viral meningitis Brain tumor 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) Gastroparesis Diverticulitis Cholecystectomy planned COPD (chronic obstructive pulmonary disease) Nocturnal hypoxemia Pulmonary emboli Chronic restrictive lung disease Hypogammaglobulinemia Surgical History Status post plication of diaphragm History of colon resection Hx of appendectomy Family History Other HTN (hypertension) (Updated 06/14/22 @ 10:10 by TIMUR Espino) Alcohol intake: never Patient Tobacco Use Status: Never used Tobacco Review of Systems Const Denies daytime sleepiness, Denies difficulty sleeping, Denies fatigue, Reports headache(s), Denies malaise, Denies night sweats, Reports snoring, Denies stops breathing during sleep and Reports weight loss ENT Denies change in voice, Reports headache(s), Denies lip swelling, Denies mouth pain, Reports nasal congestion, Reports nasal discharge and Denies tongue swelling Card Denies chest pain and Reports dyspnea on exertion Resp Reports cough, Denies pain on inspiration, Reports dyspnea on exertion and Reports snoring GI Denies abdominal pain Musc Denies no additional complaints Neuro Denies Neuro-related abnormal movements and Reports headache(s) Psych Denies no additional complaints Endo Denies fatigue Adeel/Lymph Denies easy bleeding and Denies lymphadenopathy Aller/Immun Denies lip swelling and Denies tongue swelling Physical Exam Vital Signs: Last Vital Signs Pulse 90 05/03/23 09:13 BP 132/70 05/03/23 09:13 Pulse Ox 97 05/03/23 09:13 Oxygen Delivery Method Room Air 05/03/23 09:13 BMI result Body Mass Index 31.9 Const General: cooperative Nutritional Appearance: overweight Orientation/consciousness: patient oriented x3 Limitations: no limitations HEENT Head: Yes normal to inspection Ears: hearing grossly normal bilaterally General nose exam: Normal external nose present Face and sinus: Yes normal facial exam Eyes General: appearance normal, both eyes and all related structures EOM: EOMs intact bilaterally Neck Neck: Yes normal visual inspection and Yes no meningeal signs Chest Chest palpation & inspection: normal inspection of the chest and no crepitus Resp Effort & Inspection: normal respiratory effort Auscultation: no crackles, no wheezes and diminished lung sounds on the right Cardio Rate: regular rate Heart sounds: S1 normal heart sound present and S2 normal heart sound present GI Inspection: Yes normal to inspection Palpation (GI): Soft to palpation, Tenderness to palpation present (GI) in the RUQ, no guarding and not rigid General: Yes CVA tenderness on the right Back/Spine/Pelvis Back: CVA tenderness Skin Rashes: no rashes Wounds: no wounds Neuro General: patient oriented x3 and no meningeal signs Gait exam (Neuro): Normal gait present Extrem Other: No LE edema or calf tenderness General: Yes normal to inspection Assessment & Plan Assessment & Plan (1) Paralysis, diaphragm: Comment: Status post surgery Code(s): J98.6 - Disorders of diaphragm (2) COPD (chronic obstructive pulmonary disease): Code(s): J44.9 - Chronic obstructive pulmonary disease, unspecified Qualifiers: COPD type: chronic bronchitis Chronic bronchitis type: mixed simple and mucopurulent Qualified Code(s): J41.8 - Mixed simple and mucopurulent chronic bronchitis Plan: Respiratory therapy Needs to start oxygen supplementation with activity, cont with nocturnal oxygen (3) Pulmonary emboli: Code(s): I26.99 - Other pulmonary embolism without acute cor pulmonale Qualifiers: Acute cor pulmonale presence: without acute cor pulmonale Chronicity: chronic Pulmonary embolism type: other Qualified Code(s): I27.82 - Chronic pulmonary embolism (4) Chronic restrictive lung disease: Comment: Multifactorial Code(s): J98.4 - Other disorders of lung (5) Hypogammaglobulinemia: Code(s): D80.1 - Nonfamilial hypogammaglobulinemia Plan: recheck levels (6) TAMIKA (obstructive sleep apnea): Comment: limitted PSG. No significant Sleep apea noted Code(s): G47.33 - Obstructive sleep apnea (adult) (pediatric) Plan Continue oxygen continue life long anticoagulation, Xorelto Continue Daliresp continue trazodone start Gabapentin 300mg ->600mg F/U 12 months Medications: New gabapentin 300 mg PO BEDTIME 30 days 60 caps 6RF Coding Level of Care Code Est Pt Level 4 (46180) Diagnoses Paralysis, diaphragm J98.6 Mixed simple and mucopurulent chronic bronchitis J41.8 COPD type: chronic bronchitis Chronic bronchitis type: mixed simple and mucopurulent Other chronic pulmonary embolism without acute cor pulmonale I27.82 Acute cor pulmonale presence: without acute cor pulmonale Chronicity: chronic Pulmonary embolism type: other Chronic restrictive lung disease J98.4 Hypogammaglobulinemia D80.1 TAMIKA (obstructive sleep apnea) G47.33 Time Spent (min) 16
[2023-05-03 09:13] VITALS: BP 132/70; PULSE 90; O2SAT 97; BMI 31.9
== END 2023-05-03 09:34 | disposition home or self-care (01) ==
PROVIDERS: PCP Internal Medicine; Visit Provider Hospitalist
DX: J98.6 Disorders of diaphragm (principal); J41.8 Mixed simple and mucopurulent chronic bronchitis; I27.82 Chronic pulmonary embolism; J98.4 Other disorders of lung; D80.1 Nonfamilial hypogammaglobulinemia; G47.33 Obstructive sleep apnea (adult) (pediatric)
CPT/HCPCS: 99214

== ENCOUNTER → 2023-05-03 09:05 | Outpatient (BNVA) | payer OTHER, SELFPAY | PROVIDERS: PCP Internal Medicine; Visit Provider Hospitalist | DX: J41.8 Mixed simple and mucopurulent chronic bronchitis (principal); G47.33 Obstructive sleep apnea (adult) (pediatric); J96.90 Respiratory failure, unspecified, unspecified whether with hypoxia or hypercapnia; J98.6 Disorders of diaphragm; J98.4 Other disorders of lung; I27.82 Chronic pulmonary embolism; Z99.89 Dependence on other enabling machines and devices; Z79.01 Long term (current) use of anticoagulants; Z99.81 Dependence on supplemental oxygen; D80.1 Nonfamilial hypogammaglobulinemia | CPT/HCPCS: 99212 ==

== ENCOUNTER 2023-07-08 11:46 | Emergency (ER) | payer OTHER, SELFPAY ==
--- NOTE | ~2023-07-08 | US_ITS ---
EXAMINATION: US VENOUS ULTRASOUND WITH DOPPLER LOWER EXTREMITY, RIGHT CLINICAL INFORMATION: Right lower extremity pain/swelling. COMPARISON: None available. TECHNIQUE: Ultrasound of the deep veins is performed from the hip to the calf with compression sonography and color and pulse Doppler assessment. Spectral analysis with color-flow imaging is performed. FINDINGS: There is normal venous compression and respiratory variation and augmented flow. The visualized right common femoral vein, superficial femoral vein, profunda femoral vein, popliteal vein, and the trifurcation region shows no evidence of deep venous thrombosis. Nonspecific oval-shaped, well-defined heterogeneous lesion abutting the anterior aspect of the femoral vasculature in the deep soft tissues of the anterior right mid thigh measuring 2.3 x 1.2 x 1.6 cm with associated internal calcifications and no definite internal vascularity on color Doppler. Complex fluid collection in the soft tissues of the medial right proximal calf measuring 9 x 2 x 6.3 cm with heterogeneous avascular internal debris and thin pro. US/US venous duplex LE RT IMPRESSION: 1. No DVT demonstrated in the right lower extremity. 2. Complex fluid collection in the soft tissues of the medial right proximal calf measuring 9 x 2 x 6.3 cm. This could represent a hematoma or less likely an abscess in the appropriate clinical context. Recommend short-term follow-up. 3. Nonspecific 2.3 cm lesion abutting the anterior aspect of the femoral vasculature in the deep soft tissues of the anterior right mid thigh with calcifications but no definite internal vascularity on color Doppler. Unsure if this communicates with the vasculature, could potentially represent a thrombosed aneurysm/pseudoaneurysm. Recommend further characterization with a CTA.
--- NOTE | ~2023-07-08 | CT_ITS ---
EXAMINATION: CTA ABDOMEN, PELVIS AND LOWER EXTREMITY RUNOFF WITH CONTRAST HISTORY: Question of femoral aneurysm on ultrasound. COMPARISON: No prior CTA runoff. Right lower extremity venous ultrasound from earlier today. CT scans of the abdomen and pelvis dated 05/10/2020. TECHNIQUE: Routine abdominal aorta and lower extremity runoff CTA protocol with contrast was performed. 100 mL of Omnipaque 350 was administered. Images were evaluated on independent dedicated 3-D workstation and 3-D images were reconstructed with concurrent radiologist supervision and subsequently interpreted. This CT examination was performed using dose optimization techniques as appropriate, variously including the following: *Automated exposure control *Adjustment of mA and/or kV according to patient size (this includes techniques or standardized protocols for targeted exams where dose is matched to indication/reason for exam; i.e. extremities or head) *Use of iterative reconstruction technique TOTAL DLP: 960 mGy-cm FINDINGS: VASCULAR: 1. Mesenteric Arteries:The celiac axis, superior mesenteric artery and inferior mesenteric artery appear patent. 2. 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 The renal arteries appear patent proximally. 3. Infrarenal Abdominal Aorta: Unremarkable. 4. Right Lower Extremity Arterial Perfusion: Patent right lower extremity runoff to the distal calf. Limited evaluation below the distal calf. 5. Left Lower Extremity Arterial Perfusion: Patent left lower extremity runoff to the distal calf. Limited evaluation below the distal calf. Normal variant high origin of the left posterior tibial artery. NONVASCULAR: Lung Bases: The visualized lung bases appear unremarkable. Elevation of the right hemidiaphragm. Question left ventricular hypertrophy. Heart normal in size. No pericardial effusion. Coronary arterial calcification. Liver, Gallbladder and Biliary Tree: Question fatty infiltration of the liver. The liver appears unremarkable in size and shape. No focal hepatic lesion or biliary ductal dilatation is appreciated. Status post cholecystectomy. Pancreas: Unremarkable. Spleen: Measures 17.3 cm in sagittal dimension. Adrenal Glands: Unremarkable. Kidneys and Ureters: The kidneys appear unremarkable in size, shape, and attenuation. No hydronephrosis, hydroureter, or calculi seen. Bladder: Distended. Otherwise unremarkable. Gastrointestinal Tract: Long segment concentric thickening of the wall of the visualized portion of the distal esophagus. Small bowel appears unremarkable. Sigmoid anastomotic margarita with probable left hemicolectomy. Right lower quadrant anastomotic margarita possibly related to the ileocolostomy. Abdominal Wall: Vertical midline anterior abdominal wall incisional scar. No significant hernia is appreciated. Lymph Nodes: No adenopathy by size criteria. Pelvic Viscera: Unremarkable. Musculoskeletal Structures: A 2.1 x 1.8 x 1.0 cm, smooth, helm-shaped structure contiguous with the right femoral artery corresponds with the Nonspecific 2.3 cm lesion abutting the anterior aspect of the femoral vasculature in the deep soft tissues of the anterior right mid thigh with calcifications but no definite internal vascularity on color Doppler described on ultrasound examination from earlier the same day. No internal flow is identified to suggest active pseudoaneurysm. A 8.0 x 2.6 x 7.3 cm, biconvex, homogeneously dense, nonenhancing structure in the medial aspect of the proximal lower leg corresponds with the Complex fluid collection in the soft tissues of the medial right proximal calf measuring 9 x 2 x 6.3 cm. Again, the finding is nonspecific. Difference diagnosis includes, but is not limited to, hematoma. Amorphous calcification within the distal femoral metaphyses bilaterally suggesting enchondromata or bone infarcts. CT/CT angio abd aorta runoff IMPRESSION: A 2.1 x 1.8 x 1.0 cm, smooth, helm-shaped structure contiguous with the right femoral artery corresponds with the Nonspecific 2.3 cm lesion abutting the anterior aspect of the femoral vasculature in the deep soft tissues of the anterior right mid thigh with calcifications but no definite internal vascularity on color Doppler described on ultrasound examination from earlier the same day. No internal flow is identified to suggest active pseudoaneurysm. The exact etiology and significance of this finding are uncertain. Recommend clinical correlation and follow-up as clinically indicated. A 8.0 x 2.6 x 7.3 cm, biconvex, homogeneously dense, nonenhancing structure in the medial aspect of the proximal lower leg corresponds with the Complex fluid collection in the soft tissues of the medial right proximal calf measuring 9 x 2 x 6.3 cm. Again, the finding is nonspecific. Difference diagnosis includes, but is not limited to, hematoma. Again, clinical correlation is recommended, with follow-up as clinically indicated. Long segment concentric thickening of the wall of the visualized portion of the distal esophagus. Differential diagnosis includes, but is not limited to, esophagitis. Splenomegaly. Additional findings, as above.
--- NOTE | 2023-07-08 11:57 | ED.GENADULT ---
HPI - General Adult General Chief complaint: Extremity Injury, Lower Stated complaint: R leg pain Time Seen by Provider: 07/08/23 12:48 History of Present Illness HPI narrative: The patient is a 57-year-old male who 10 days ago developed a pain in his right calf. He was seen at [facility] that same day and had an ultrasound that showed no DVT. He was told that he had a Iglesias's cyst. Since then the patient has had increasing swelling to the medial aspect of the right lower leg just below the knee and he has had ecchymotic skin changes to the lower leg as well. He says that he has been resting and elevating the leg without improvement. He has been using Celebrex advised by his PCP without improvement. He feels the leg is looking much worse and came to the emergency room today with his . No fever, sweats, chills. He denies any injury. The patient has a history of pulmonary emboli and is on rivaroxaban. Related Data Home Medications Medication Instructions Recorded Confirmed allopurinol 100 mg tablet 100 mg PO DAILY 04/16/20 05/22/20 amitriptyline 25 mg tablet 25 mg PO DAILY 04/16/20 05/22/20 aspirin 81 mg tablet,delayed 81 mg PO DAILY 04/16/20 05/22/20 release furosemide 20 mg tablet 10 mg PO QAM 04/16/20 05/22/20 ondansetron HCl 8 mg tablet 8 mg PO Q12H 04/16/20 05/22/20 propranolol 40 mg tablet 40 mg PO BID 04/16/20 05/22/20 rivaroxaban 10 mg tablet (Xarelto) 10 mg PO DAILY 04/16/20 05/22/20 cholecalciferol (vitamin D3) 50 50 mcg PO DAILY 06/14/22 mcg (2,000 unit) capsule dapagliflozin propanediol 5 mg 5 mg PO DAILY 06/14/22 tablet (Farxiga) fenofibrate 54 mg tablet 54 mg PO DAILY 06/14/22 folic acid 1 mg tablet 1 mg PO DAILY 06/14/22 isosorbide mononitrate 30 mg 30 mg PO DAILY 06/14/22 tablet,extended release 24 hr metoprolol succinate 100 mg 100 mg PO DAILY 06/14/22 tablet,extended release 24 hr midodrine 2.5 mg tablet 2.5 mg PO TID 06/14/22 pantoprazole 40 mg tablet,delayed 40 mg PO DAILY 06/14/22 release rosuvastatin 20 mg tablet 20 mg PO DAILY 06/14/22 semaglutide 7 mg tablet (Rybelsus) 7 mg PO DAILY 06/14/22 linaclotide 72 mcg capsule 72 mcg PO DAILY 09/14/22 (Linzess) trazodone 50 mg tablet 50 mg PO BEDTIME 05/03/23 Previous Rx's Medication Instructions Recorded roflumilast 500 mcg tablet 500 mcg PO DAILY #90 tabs 03/30/23 (Daliresp) gabapentin 300 mg capsule 900 mg (3 x 300 mg) PO BEDTIME 90 06/27/23 days #270 caps oxycodone 5 mg tablet 5 mg PO Q6H PRN pain #14 tabs 07/08/23 Allergies Allergy/AdvReac Type Severity Reaction Status Date / Time Morphine Allergy Severe Rash Uncoded 07/08/23 11:58 PMFSH Past Medical History Medical History (Updated 07/08/23 @ 18:29 by Andrew Galaviz MD) Nocturnal hypoxia TAMIKA (obstructive sleep apnea) Pleural effusion Pneumonia Paralysis, diaphragm Chest pain Gout Diabetes High cholesterol HTN (hypertension) Viral meningitis Brain tumor 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) Gastroparesis Diverticulitis Cholecystectomy planned COPD (chronic obstructive pulmonary disease) Nocturnal hypoxemia Pulmonary emboli Chronic restrictive lung disease Hypogammaglobulinemia Surgical History Status post plication of diaphragm History of colon resection Hx of appendectomy Family History Family History Other HTN (hypertension) Social History Social History (Updated 06/14/22 @ 10:10 by TIMUR Espino) Alcohol intake: never Patient Tobacco Use Status: Never used Tobacco Smoked in Last 30 Days: No Use of substances other than those prescribed or required for medical reasons: No Advance Directives: No Physical Exam ED Vital Signs: Vital Signs - 24 hr 07/08/23 11:58 07/08/23 14:18 07/08/23 15:22 Temperature 97.8 F 97.7 F Pulse Rate 90 82 76 Respiratory Rate 16 20 14 Blood Pressure 142/79 H 117/67 Pulse Oximetry 98 97 97 Oxygen Delivery Method Room Air Room Air Room Air 07/08/23 18:13 Temperature 97.9 F Pulse Rate 75 Respiratory Rate 16 Blood Pressure 105/63 Pulse Oximetry 95 Oxygen Delivery Method Room Air BMI result Body Mass Index 36.0 Const Other: The patient is a frail looking, somewhat chronically ill-appearing 57-year-old. He looks older than his age. He is awake and alert, pleasant cooperative. He has obvious changes to the right lower leg but otherwise does not seem obviously acutely ill or in distress. HENMT Other: The face is symmetrical. ?Mucous membranes moist. Eyes Other: Pupils are round equal, conjunctivae are clear, extraocular movements intact Neck Other: No JVD Resp Effort & Inspection: normal respiratory effort Auscultation: clear to auscultation bilaterally Cardio Rate: regular rate Rhythm: regular rhythm Heart sounds: S1 normal heart sound present and S2 normal heart sound present GI Other: Abdomen is soft and nontender Skin Other: The patient has an unusual swelling to the medial aspect of the proximal right lower leg. There is also a widespread but subtle skin discoloration to the right lower leg suggestive of a resolving hematoma. The skin is intact. Neuro Other: The patient is awake, alert, appropriate, grossly neurologically intact Extrem Other: The patient has excellent dorsalis pedis pulses in both feet. At the medial aspect of the proximal right lower leg, just below the knee, is an unusual swelling which is fairly large but is not associated with any significant skin changes overlying the swelling. Most of the lower leg below this area of swelling has some yellowish discoloration consistent with ecchymotic skin changes. Course Course Course Narrative: RME:?57 yo male w/ hx of COPD, diabetes, diverticulitis, gastroparesis, hyperlipidemia, HTN, PE on Xarelto, RBBB, viral meningitis w/ right posterior knee pain/swelling x8 days. Was seen at [facility] 7 days ago for same, diagnosed with Iglesias's cyst of RLE, discharged home. Reports worsening pain, exacerbated w/ walking and bending R knee. Admits to recent car ride to [place] (2 hours). No other long car rides or travel. On Xarelto. RLE venous duplex ordered Full HPI, ROS and PE to be performed by the primary ED provider. Medications Administered Discontinued Medications Generic Name Dose Route Start Last Admin Trade Name Freq PRN Reason Stop Dose Admin Sodium Chloride 1,000 mls @ 999 mls/hr 07/08/23 16:15 07/08/23 18:14 Ns IV 07/08/23 17:15 Infused .Q1H1M BERTIN Infusion Iohexol 100 ml 07/08/23 16:35 07/08/23 16:35 Iohexol 350 Mg/Ml 100 Ml Infus..Btl IV 07/08/23 16:36 100 ml ONCE ONE Administration Medical Decision Making Medical Decision Making [facility] Narrative: The patient is a 57-year-old man on lifelong anticoagulation because of pulmonary emboli. He is on rivaroxaban. Ten days ago he developed pain and swelling to the right proximal calf. He was seen at [facility] and had an ultrasound and was told that he had a Iglesias's cyst. Despite rest and elevation swelling has gotten worse and he has ecchymotic discoloration to a lot of the leg. He does not seem ill otherwise. Today's workup included another DVT ultrasound that showed no DVT but did show a complex fluid collection in the region of concern at the medial proximal calf. Was thought that this could represent a hematoma or less likely an abscess. The patient has no symptoms to suggest an infection. Additionally on the ultrasound was a lesion in the mid thigh near the femoral artery that raised concern for a possible thrombosed aneurysm or pseudoaneurysm. A CT angiogram was recommended. The CT angiogram shows no internal flow to the mid thigh lesion. Radiology did not really have a clear diagnosis of the structure contiguous with the right femoral artery. With regard to the more salient lesion, at the medial proximal calf, the CT also suggest that this could be a hematoma. No ongoing bleeding or extravasation was seen at either site. I discussed the case with orthopedics. They agree that this seems more like a hematoma than anything to do with a Iglesias's cyst. Recommendations were for conservative management. Unfortunately the patient can not be taken off anticoagulation given his history of pulmonary emboli. The patient will be treated for pain with oxycodone. I think he may be discharged. He says that he has seen a vascular surgeon in [place]. He can not remember the name. I will recommend that he contact his vascular surgeon on Monday for an additional opinion about the lesions since the question of an aneurysm was raised. Ultimately he may follow-up with the general surgeon, he has seen Dr. Navarro in [place]. Otherwise he should follow up with his regular primary care doctor. Lab Data 07/08/23 15:09 07/08/23 15:09 Labs: Lab Results 07/08/23 Range/Units 15:09 WBC 8.3 (4.8-10.8) X10*3/uL RBC 5.31 (4.60-5.80) X10*6/uL Hgb 15.1 (14.0-18.0) g/dl Hct 45.6 (42.0-52.0) % MCV 85.9 (80.0-98.0) fL MCH 28.4 (27.0-33.0) pg MCHC 33.1 (31.0-36.0) g/dl RDW 15.4 (11.0-16.0) % Plt Count 344 (160-400) X10*3/uL MPV 9.8 (9.4-12.4) fL Immature Gran % (Auto) 0.5 H (0.0-0.4) % Neut % (Auto) 66.0 (45-73) % Lymph % (Auto) 20.0 (20-40) % Garden % (Auto) 7.2 (2-11) % Eos % (Auto) 5.0 H (0-4) % Baso % (Auto) 1.3 (0-2) % Lymph # (Auto) 1.7 (1.2-4.9) X10*3/uL Garden # (Auto) 0.6 (0.1-1.2) X10*3/uL Eos # (Auto) 0.4 (0.0-0.4) X10*3/uL Baso # (Auto) 0.1 (0.0-0.2) X10*3/uL Abs Immat Gran (auto) 0.04 H (0.00-0.03) X10*3/uL Absolute Neuts (auto) 5.5 (2.0-8.3) x10*3/uL Absolute Nucleated RBC 0.000 (0.0-0.012) X10*3/uL Nucleated RBC % (auto) 0.0 (0.0-0.2) /100WBC Sodium 139 (135-145) mmol/L Potassium 4.3 (3.3-5.1) mmol/L Chloride 103 (96-108) mmol/L Carbon Dioxide 26 (22-29) mmol/L Anion Gap 14 (12-20) BUN 14 (9-16) mg/dL Creatinine 1.05 (0.5-1.4) mg/dL Estim Creat Clear Calc 105.6 Estimated GFR > 60 Random Glucose 165 H (60-115) mg/dL Calcium 10.0 (8.4-10.2) mg/dL Total Bilirubin 0.9 (0.0-1.0) mg/dL Direct Bilirubin 0.4 (0.0-0.5) mg/dL AST 31 (5-37) U/L ALT 33 (0-40) U/L Alkaline Phosphatase 128 H (39-117) U/L Total Creatine Kinase 84 (38-174) U/L Total Protein 7.4 (6.5-8.0) g/dL Albumin 3.9 (3.5-5.0) g/dL Discharge Plan Discharge Clinical Impression: Hematoma of right lower extremity Patient Disposition: Home, Self-Care Additional Instructions: I think that you developed a spontaneous hematoma at the upper portion of your medial right lower leg. Unfortunately people on anticoagulation like rivaroxaban can develop spontaneous hematomas from time to time. Other than resting and elevating the leg and applying gentle compression with an Jesus Alberto bandage and icing the leg with some frequency I do not think there is much that can be done acutely to address this problem. I have sent a prescription for oxycodone to your pharmacy. In addition to the prescribed oxycodone you may take 2 extra-strength acetaminophen up to 3 times per day as needed for discomfort. At this point I would stop the Celebrex. For follow-up on this issue I think it would be good for you to see a vascular surgeon. Please contact the vascular surgeon in [place] you have seen before. Call their office on Monday to see if you can get an appointment with them. If you have trouble seeing the vascular surgeon it might be reasonable for you to see Dr. Navarro, the general surgeon you have seen in the past. Also please follow-up with your primary care doctor as well. Your primary care doctor can help coordinate evaluations by surgeons. Return to the emergency room if significantly worse. Prescriptions: New oxycodone 5 mg tablet 5 mg PO Q6H PRN (Reason: pain) Qty: 14 0RF Rx Instructions: Partial Fill upon patient request. No Action Daliresp 500 mcg tablet 500 mcg PO DAILY Qty: 90 2RF gabapentin 300 mg capsule 900 mg PO BEDTIME 90 Days Qty: 270 3RF Xarelto 10 mg tablet 10 mg PO DAILY aspirin 81 mg tablet,delayed release (DR/EC) 81 mg PO DAILY ondansetron HCl 8 mg tablet 8 mg PO Q12H propranolol 40 mg tablet 40 mg PO BID furosemide 20 mg tablet 10 mg PO QAM allopurinol 100 mg tablet 100 mg PO DAILY amitriptyline 25 mg tablet 25 mg PO DAILY isosorbide mononitrate 30 mg tablet extended release 24 hr 30 mg PO DAILY metoprolol succinate 100 mg tablet extended release 24 hr 100 mg PO DAILY pantoprazole 40 mg tablet,delayed release (DR/EC) 40 mg PO DAILY rosuvastatin 20 mg tablet 20 mg PO DAILY fenofibrate 54 mg tablet 54 mg PO DAILY folic acid 1 mg tablet 1 mg PO DAILY midodrine 2.5 mg tablet 2.5 mg PO TID cholecalciferol (vitamin D3) 50 mcg (2,000 unit) capsule 50 mcg PO DAILY Farxiga 5 mg tablet 5 mg PO DAILY Rybelsus 7 mg tablet 7 mg PO DAILY Linzess 72 mcg capsule 72 mcg PO DAILY trazodone 50 mg tablet 50 mg PO BEDTIME Referrals: Maurice Minor MD [Primary Care Provider] - (right calf hematoma) Interventions: ED Discharge Assessment Last Done: 07/08/23 18:40 Discharge Date/Time: 07/08/23 18:48
[2023-07-08 11:58] VITALS: BP 142/79; PULSE 90; RESP 16; TEMP 36.6; O2SAT 98; BMI 36.0
--- NOTE | 2023-07-08 12:44 | PC.NURSE ---
pt brought directly from to ultrasound for procedure then will head to emc room
--- NOTE | 2023-07-08 14:11 | PC.NURSE ---
pt seen by provider yesenia moncada at bedside but moved pt to main ed and handed over to next rn per pa request as pt had significant potential finding on an exam report.
[2023-07-08 14:18] VITALS: PULSE 82; RESP 20; O2SAT 97
--- NOTE | 2023-07-08 14:19 | PC.NURSE ---
Patient reports was here x10 days ago for a bakers cyst on the back of right knee. Patient reports pain has gotten worse and has notified color changes to the leg. Able to moves toes without difficulty, leg warm to touch. Leg with bruising noted below knee, calf firm to touch. Patient denies falls, reports difficulty walking d/t swelling
[2023-07-08 15:18] LABS: MANUAL DIFF FLAG NO
[2023-07-08 15:19] LABS: Basophils Absolute Auto 0.1 X10*3/uL (0.0-0.2); Basophils Percent Auto 1.3 % (0-2); Eosinophils Absolute Auto 0.4 X10*3/uL (0.0-0.4); Hematocrit 45.6 % (42.0-52.0); Hemoglobin 15.1 g/dl (14.0-18.0); Imm Gran Abs Auto 0.04 X10*3/uL (0.00-0.03); Imm Gran Pct Auto 0.5 % (0.0-0.4); Lymphocytes Absolute Auto 1.7 X10*3/uL (1.2-4.9); Mean Corpuscular HGB Conc 33.1 g/dl (31.0-36.0); Mean Corpuscular Hemoglobin 28.4 pg (27.0-33.0); Mean Corpuscular Volume 85.9 fL (80.0-98.0); Mean Platelet Volume 9.8 fL (9.4-12.4); Monocytes Absolute Auto 0.6 X10*3/uL (0.1-1.2); Monocytes Percent Auto 7.2 % (2-11); Neutrophils Absolute Auto 5.5 x10*3/uL (2.0-8.3); Platelet Count 344 X10*3/uL (160-400); Red Blood Count 5.31 X10*6/uL (4.60-5.80); Red Cell Distribution Width 15.4 % (11.0-16.0); White Blood Count 8.3 X10*3/uL (4.8-10.8)
[2023-07-08 15:22] VITALS: BP 117/67; PULSE 76; RESP 14; TEMP 36.5; O2SAT 97
[2023-07-08 15:34] LABS: Alanine Aminotransferase 33 U/L (0-40); Albumin Level 3.9 g/dL (3.5-5.0); Alkaline Phosphatase 128 U/L (39-117); Anion Gap 14 (12-20); Aspartate Amino Transferase 31 U/L (5-37); Bilirubin Direct 0.4 mg/dL (0.0-0.5); Bilirubin Total 0.9 mg/dL (0.0-1.0); Blood Urea Nitrogen 14 mg/dL (9-16); Carbon Dioxide 26 mmol/L (22-29); Chloride 103 mmol/L (96-108); Creatinine Clr Calc Pharmacy 105.6; Estimated Glomerular Filt Rate > 60; Glucose Random 165 mg/dL (60-115); Potassium 4.3 mmol/L (3.3-5.1); Sodium 139 mmol/L (135-145); Total Protein 7.4 g/dL (6.5-8.0)
[2023-07-08] MEDS: 0.9 % Sodium Chloride 1,000 ML 999 ML IV (16:19)
[2023-07-08] MEDS: iohexoL 350 MG/ML 100 ML INFUS..BTL IV (16:35)
[2023-07-08 18:13] VITALS: BP 105/63; PULSE 75; RESP 16; TEMP 36.6; O2SAT 95
--- NOTE | 2023-07-08 18:24 | PC.NURSE ---
Alert and oriented, reports pain in leg, provider notified
== END 2023-07-08 18:48 | disposition home or self-care (01) ==
PROVIDERS: Emergency Provider Emergency Medicine; PCP Internal Medicine
DX: M79.81 Nontraumatic hematoma of soft tissue (principal); M79.661 Pain in right lower leg; Z86.711 Personal history of pulmonary embolism; E11.9 Type 2 diabetes mellitus without complications; I10 Essential (primary) hypertension; E78.00 Pure hypercholesterolemia, unspecified; Z79.01 Long term (current) use of anticoagulants; Z79.82 Long term (current) use of aspirin; Z79.899 Other long term (current) drug therapy; Z79.02 Long term (current) use of antithrombotics/antiplatelets; Z79.84 Long term (current) use of oral hypoglycemic drugs
CPT/HCPCS: 36415; 75635; 80048; 80076; 82550; 85025; 93971; 96360; 96361; 99284; Q9967

== ENCOUNTER 2023-12-12 08:55 | Outpatient (AMB) | payer OTHER, SELFPAY ==
[2023-12-12 08:56] VITALS: PULSE 90; O2SAT 95; BMI 32.3
--- NOTE | 2023-12-12 08:56 | MHC.OFFVIS ---
Vital Signs 12/12/23 08:56 Height 6 ft 4 in Weight 265 lb BMI 32.3 Pulse 90 Pulse Source Pulse Oximeter Pulse Oximetry (%) 95 Oxygen Delivery Method Room Air Intake Visit Reasons: Obstructive sleep apnea Allergies Morphine Allergy (Severe, Uncoded 12/12/23 08:59) Rash HPI Comments Details: The patient is a 58-year-old gentleman here for pulmonary follow-up visit. 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 More recently he was admitted to [facility] diagnosed with viral meningitis. Per report the patient has stated that he developed varicella meningitis. He was treated with antiviral therapy and now is better. But, suffering from significant headaches. He is on numerous medications for the headaches and only partial improvement of the symptoms. Having hard time sleeping. While he was in the hospital he did have his blood work done including IgG level that was significantly low. We did go to the other laboratory symptoms of R[facility]S labs demonstrating again significant decrease of the IgG level suggesting an immunodeficiency. The patient has been getting recurrent respiratory infections and now with significant meningitis. The patient will benefit from IVIG therapy. I will recheck all his antibody levels at this time. The patient does have a gammopathy history followed by Hematology. 05/14/2020 the patient is here for pulmonary follow-up visit. He has been complaining worsening pleuritic right-sided chest discomfort. Moderate to severe. It actually was so severe that he had to come to the ER. He was evaluated here. He did have blood work done demonstrating an elevated D-dimer and also demonstrated a significantly elevated troponin I. The patient did have an EKG which showed abnormalities. He also had a CTA that was negative for PE although he did have a right-sided pleural effusion along with a small area of airspace disease. This pain likely related to underlying pleuritic discomfort from the pleural effusion and pleurisy. I am concerned that he had of significantly elevated troponin I. Because of the shortness of breath that has been having along with discomfort I did have him go for a 6 minutes walk test. His oxygenation did drop to 88% after 2 minutes walking. His heart rate was in the low 100s. He was placed on 2 L and his oxygen with activity improved to about 94%. The patient at this time requires oxygen. This is likely due to his COPD and history of thromboembolic disease. I will have a repeat the troponin I. If the troponin I continues to be elevated I will refer him to the ER. Otherwise he knows to call his commissioner public works. Will also treating for a underlying lower respiratory infection. 05/22/2020 the patient is here for pulmonary follow-up visit. When we last spoke she did have elevations in his cardiac enzymes and I did recommend he go to the ER. Initially came here and then to [facility]. He was briefly admitted to the hospital and seen by his commissioner public works. He was found to be stable from a cardiac standpoint. In the meantime he was treated with antibiotics for what appeared to be a right lower lobe pneumonia with a parapneumonic effusion. Currently still feeling a little discomfort in the chest area but overall he is feeling better. He continues use the oxygen with good effect at nighttime. However, he still waiting for his portable tanks from the [employer]. Therefore I did call the [employer] to try to facilitate the delivery of portable tanks and hopefully a small conserving device that he could use outside of the home. 06/14/2022 the patient is here for a pulmonary follow-up visit. He has been complaining of increasing shortness of breath and dizziness. Moderate severity. Recently he was hospitalized at [facility] after having chest pains and abnormal EKG concerning with a non ST elevation NC. He has was transferred over to [facility] where he underwent a cardiac catheterization. No evidence of any obstructive coronary artery disease. However, the patient noticed to have severe hypertrophic Changes to the left ventricle. The echo ruled out the possibility of a outflow obstruction. Currently plan to undergo an MRI of the heart to assess for infiltrative cardiac conditions including amyloidosis. In the meantime the patient stands that untreated sleep apnea can resulting worsening cardiovascular disease. He does have underlying sleep apnea history. He has significant snoring and significant daytime drowsiness. In view of his heart disease I am requesting an in-lab sleep study. His [place] score is elevated 06/04. 09/14/2022 the patient is here for a pulmonary follow-up visit. Overall he is feeling a lot better. He has been very motivated about losing weight. He is eating eating lasting trying to exercise. Still gets very winded with activity. He did have his cardiac MRI demonstrating hypertrophic cardiomyopathy. Explained to him that he needs to make sure that his heart rate stays within the target range to minimize on his worsening shortness of breath. As far as his sleep is better now that he has lost weight. His [place] score is better 6/24. His in-lab sleep study was suboptimal at the patient had a hard time sleeping. Although his AHI was within normal limits at 2.1 any actually did not desaturate which is reassuring. The patient still using Daliresp. The Daliresp medications been affecting beneficial and has helped his respiratory status dramatically. Therefore I believe is important for him to continue. He continues on the anticoagulation therapy without any adverse effects. Otherwise patient is doing well will follow-up in a year's time. 05/03/2023 the patient is here for a pulmonary follow-up visit. The patient overall has been doing fair. He has been weaning off his hydromorphone and therefore has had a lot of adjustment because of that. But he is happy that he is weaning off at this time. From a respiratory status the patient is doing well. He continues on the Daliresp which is helping with his chronic bronchitis and also has his rescue inhaler. He was recently admitted to [facility] back in February after developing COVID. The patient was able to recover fairly quickly and now is back to his baseline. He is sleeping well he is not using any CPAP. He is using the trazodone for sleep aid. He is having significant neuropathic pain that is also affecting his sleep therefore will add gabapentin to his sleep regimen. Hopefully he can tolerate 300 mg and is not increase to 600 mg. She she continues on Xarelto for the anticoagulation for the history of pulmonary emboli. This will be a lifelong as long as he can tolerate it. Otherwise patient is without any other complaints. 12/12/2023 the patient is here for pulmonary follow-up visit. Overall the patient is doing well from a respiratory status. He did go to [facility] recently with chest pain. the patient did have a CTA with sister PE. I personally did review the CT scan of the chest. No evidence of any pulmonary emboli. Actually his lung parenchyma was reassuring. No evidence of any active disease. He did undergo a left cardiac catheterization. He was found to have multivessel disease. He did have a drug-eluting stent placed to the RCA. He also had a 70% obstruction of the OM and also another vessel. He was then provided with cardioprotective medications. However, he started developing chest discomfort again. Therefore, he is going to undergo a repeat cardiac catheterization with stenting of the OM 1. in the meantime he is going to continue with his respiratory therapy. The therapy has been affecting beneficial. He does have oxygen at home. We did go for brief walking oximetry the patient is doing a lot better from a oxygen standpoint. Therefore he is able to start cardiac rehab hopefully without any oxygen. He continues use Daliresp with very good effect. Although he has not been able to get it. I will make sure sent to the pharmacy and we may have to do a prior approval. 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) Gastroparesis Diverticulitis Cholecystectomy planned COPD (chronic obstructive pulmonary disease) Nocturnal hypoxemia Pulmonary emboli Chronic restrictive lung disease Hypogammaglobulinemia Surgical History Status post plication of diaphragm History of colon resection Hx of appendectomy Family History Other HTN (hypertension) Social History (Updated 06/14/22 @ 10:10 by Serenity Herring Keyla) Alcohol intake: never Patient Tobacco Use Status: Never used Tobacco Review of Systems Const Denies daytime sleepiness, Denies difficulty sleeping, Denies fatigue, Reports headache(s), Denies malaise, Denies night sweats, Reports snoring, Denies stops breathing during sleep and Reports weight loss ENT Denies change in voice, Reports headache(s), Denies lip swelling, Denies mouth pain, Reports nasal congestion, Reports nasal discharge and Denies tongue swelling Card Reports chest pain and Reports dyspnea on exertion Resp Reports cough, Denies pain on inspiration, Reports dyspnea on exertion and Reports snoring GI Denies abdominal pain Musc Denies no additional complaints Neuro Denies Neuro-related abnormal movements and Reports headache(s) Psych Denies no additional complaints Endo Denies fatigue Adeel/Lymph Denies easy bleeding and Denies lymphadenopathy Aller/Immun Denies lip swelling and Denies tongue swelling Physical Exam Vital Signs: Last Vital Signs Pulse 90 12/12/23 08:56 Pulse Ox 95 12/12/23 08:56 Oxygen Delivery Method Room Air 12/12/23 08:56 BMI result Body Mass Index 32.3 Const General: cooperative and comfortable Nutritional Appearance: overweight Orientation/consciousness: patient oriented x3 Limitations: no limitations HEENT Head: Yes normal to inspection Ears: hearing grossly normal bilaterally General nose exam: Normal external nose present Face and sinus: Yes normal facial exam Eyes General: appearance normal, both eyes and all related structures EOM: EOMs intact bilaterally Neck Neck: Yes normal visual inspection Chest Chest palpation & inspection: normal inspection of the chest and no crepitus Resp Effort & Inspection: normal respiratory effort Auscultation: no crackles, no wheezes and diminished lung sounds on the right Cardio Rate: regular rate Heart sounds: S1 normal heart sound present and S2 normal heart sound present GI Inspection: Yes normal to inspection Palpation (GI): Soft to palpation, Tenderness to palpation present (GI) in the RUQ, no guarding and not rigid General: Yes CVA tenderness on the right Back/Spine/Pelvis Back: CVA tenderness Skin Rashes: no rashes Wounds: no wounds Neuro General: patient oriented x3 Gait exam (Neuro): Normal gait present Extrem Other: No LE edema or calf tenderness General: Yes normal to inspection Assessment & Plan Assessment & Plan (1) Paralysis, diaphragm: Comment: Status post surgery Code(s): J98.6 - Disorders of diaphragm Category: Medical (2) COPD (chronic obstructive pulmonary disease): Code(s): J44.9 - Chronic obstructive pulmonary disease, unspecified Category: Medical Qualifiers: COPD type: chronic bronchitis Chronic bronchitis type: mixed simple and mucopurulent Qualified Code(s): J41.8 - Mixed simple and mucopurulent chronic bronchitis Plan: Respiratory therapy Needs to start oxygen supplementation with activity, cont with nocturnal oxygen (3) Pulmonary emboli: Code(s): I26.99 - Other pulmonary embolism without acute cor pulmonale Category: Medical Qualifiers: Acute cor pulmonale presence: without acute cor pulmonale Chronicity: chronic Pulmonary embolism type: other Qualified Code(s): I27.82 - Chronic pulmonary embolism (4) Chronic restrictive lung disease: Comment: Multifactorial Code(s): J98.4 - Other disorders of lung Category: Medical (5) Hypogammaglobulinemia: Code(s): D80.1 - Nonfamilial hypogammaglobulinemia Category: Medical Plan: recheck levels (6) TAMIKA (obstructive sleep apnea): Comment: limitted PSG. No significant Sleep apea noted Code(s): G47.33 - Obstructive sleep apnea (adult) (pediatric) Category: Medical (7) CAD (coronary artery disease): Code(s): I25.10 - Atherosclerotic heart disease of [place] coronary artery without angina pectoris Category: Medical Qualifiers: Coronary Disease-Associated Artery/Lesion type: [place] artery [place] vs. transplanted heart: [place] heart Associated angina: unspecified whether angina present Qualified Code(s): I25.10 - Atherosclerotic heart disease of [place] coronary artery without angina pectoris Plan Continue oxygen continue life long anticoagulation, Xorelto Continue Daliresp continue trazodone start Gabapentin 600mg PCI Cardiac rehab F/U 6-8 months Medications: Changed From roflumilast (Daliresp) 500 mcg PO DAILY 90 tabs 2RF To roflumilast (Daliresp) 500 mcg PO DAILY 90 tabs 3RF 90 days Coding Level of Care Code Est Pt Level 4 (79596) Diagnoses Paralysis, diaphragm J98.6 Mixed simple and mucopurulent chronic bronchitis J41.8 COPD type: chronic bronchitis Chronic bronchitis type: mixed simple and mucopurulent Other chronic pulmonary embolism without acute cor pulmonale I27.82 Acute cor pulmonale presence: without acute cor pulmonale Chronicity: chronic Pulmonary embolism type: other Chronic restrictive lung disease J98.4 Hypogammaglobulinemia D80.1 TAMIKA (obstructive sleep apnea) G47.33 Coronary artery disease involving [place] coronary artery of [place] heart, unspecified whether angina present I25.10 Coronary Disease-Associated Artery/Lesion type: [place] artery [place] vs. transplanted heart: [place] heart Associated angina: unspecified whether angina present Time Spent (min) 17
== END 2023-12-12 09:24 | disposition home or self-care (01) ==
PROVIDERS: PCP Internal Medicine; Visit Provider Hospitalist
DX: J98.6 Disorders of diaphragm (principal); J41.8 Mixed simple and mucopurulent chronic bronchitis; I27.82 Chronic pulmonary embolism; J98.4 Other disorders of lung; D80.1 Nonfamilial hypogammaglobulinemia; G47.33 Obstructive sleep apnea (adult) (pediatric); I25.10 Atherosclerotic heart disease of native coronary artery without angina pectoris
CPT/HCPCS: 99214

== ENCOUNTER → 2023-12-12 08:55 | Outpatient (BNVA) | payer OTHER, SELFPAY | PROVIDERS: PCP Internal Medicine; Visit Provider Hospitalist | DX: J98.6 Disorders of diaphragm (principal); J41.8 Mixed simple and mucopurulent chronic bronchitis; J98.4 Other disorders of lung; I27.82 Chronic pulmonary embolism; D80.1 Nonfamilial hypogammaglobulinemia; G47.33 Obstructive sleep apnea (adult) (pediatric); I25.10 Atherosclerotic heart disease of native coronary artery without angina pectoris | CPT/HCPCS: 99212 ==

== ENCOUNTER 2024-09-12 14:20 | Outpatient (AMB) | payer OTHER, SELFPAY ==
[2024-09-12 14:35] VITALS: BP 100/62; PULSE 78; O2SAT 96; BMI 33.9
--- NOTE | 2024-09-12 14:35 | MHC.OFFVIS ---
Vital Signs 09/12/24 14:35 Height 6 ft 4 in Weight 278 lb 14.156 oz BMI 33.9 BP 100/62 Blood Pressure Location Rt brachial Position Sitting Pulse 78 Pulse Source Pulse Oximeter Pulse Oximetry (%) 96 Oxygen Delivery Method Room Air Intake Visit Reasons: Obstructive sleep apnea Allergies Morphine Allergy (Severe, Uncoded 09/12/24 14:37) Rash HPI Comments Details: The patient is a 58-year-old gentleman here for pulmonary follow-up visit. 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 More recently he was admitted to [facility] [place] diagnosed with viral meningitis. Per report the patient has stated that he developed varicella meningitis. He was treated with antiviral therapy and now is better. But, suffering from significant headaches. He is on numerous medications for the headaches and only partial improvement of the symptoms. Having hard time sleeping. While he was in the hospital he did have his blood work done including IgG level that was significantly low. We did go to the other laboratory symptoms of [employer] labs demonstrating again significant decrease of the IgG level suggesting an immunodeficiency. The patient has been getting recurrent respiratory infections and now with significant meningitis. The patient will benefit from IVIG therapy. I will recheck all his antibody levels at this time. The patient does have a gammopathy history followed by Hematology. 05/14/2020 the patient is here for pulmonary follow-up visit. He has been complaining worsening pleuritic right-sided chest discomfort. Moderate to severe. It actually was so severe that he had to come to the ER. He was evaluated here. He did have blood work done demonstrating an elevated D-dimer and also demonstrated a significantly elevated troponin I. The patient did have an EKG which showed abnormalities. He also had a CTA that was negative for PE although he did have a right-sided pleural effusion along with a small area of airspace disease. This pain likely related to underlying pleuritic discomfort from the pleural effusion and pleurisy. I am concerned that he had of significantly elevated troponin I. Because of the shortness of breath that has been having along with discomfort I did have him go for a 6 minutes walk test. His oxygenation did drop to 88% after 2 minutes walking. His heart rate was in the low 100s. He was placed on 2 L and his oxygen with activity improved to about 94%. The patient at this time requires oxygen. This is likely due to his COPD and history of thromboembolic disease. I will have a repeat the troponin I. If the troponin I continues to be elevated I will refer him to the ER. Otherwise he knows to call his greenhouse grower. Will also treating for a underlying lower respiratory infection. 05/22/2020 the patient is here for pulmonary follow-up visit. When we last spoke she did have elevations in his cardiac enzymes and I did recommend he go to the ER. Initially came here and then to [facility]. He was briefly admitted to the hospital and seen by his greenhouse grower. He was found to be stable from a cardiac standpoint. In the meantime he was treated with antibiotics for what appeared to be a right lower lobe pneumonia with a parapneumonic effusion. Currently still feeling a little discomfort in the chest area but overall he is feeling better. He continues use the oxygen with good effect at nighttime. However, he still waiting for his portable tanks from the [employer]. Therefore I did call the [employer] company to try to facilitate the delivery of portable tanks and hopefully a small conserving device that he could use outside of the home. 06/14/2022 the patient is here for a pulmonary follow-up visit. He has been complaining of increasing shortness of breath and dizziness. Moderate severity. Recently he was hospitalized at [facility] after having chest pains and abnormal EKG concerning with a non ST elevation TN. He has was transferred over to [facility] where he underwent a cardiac catheterization. No evidence of any obstructive coronary artery disease. However, the patient noticed to have severe hypertrophic Changes to the left ventricle. The echo ruled out the possibility of a outflow obstruction. Currently plan to undergo an MRI of the heart to assess for infiltrative cardiac conditions including amyloidosis. In the meantime the patient stands that untreated sleep apnea can resulting worsening cardiovascular disease. He does have underlying sleep apnea history. He has significant snoring and significant daytime drowsiness. In view of his heart disease I am requesting an in-lab sleep study. His Henrietta score is elevated 06/04. 09/14/2022 the patient is here for a pulmonary follow-up visit. Overall he is feeling a lot better. He has been very motivated about losing weight. He is eating eating lasting trying to exercise. Still gets very winded with activity. He did have his cardiac MRI demonstrating hypertrophic cardiomyopathy. Explained to him that he needs to make sure that his heart rate stays within the target range to minimize on his worsening shortness of breath. As far as his sleep is better now that he has lost weight. His Henrietta score is better 6/24. His in-lab sleep study was suboptimal at the patient had a hard time sleeping. Although his AHI was within normal limits at 2.1 any actually did not desaturate which is reassuring. The patient still using Daliresp. The Daliresp medications been affecting beneficial and has helped his respiratory status dramatically. Therefore I believe is important for him to continue. He continues on the anticoagulation therapy without any adverse effects. Otherwise patient is doing well will follow-up in a year's time. 05/03/2023 the patient is here for a pulmonary follow-up visit. The patient overall has been doing fair. He has been weaning off his hydromorphone and therefore has had a lot of adjustment because of that. But he is happy that he is weaning off at this time. From a respiratory status the patient is doing well. He continues on the Daliresp which is helping with his chronic bronchitis and also has his rescue inhaler. He was recently admitted to [facility] back in February after developing COVID. The patient was able to recover fairly quickly and now is back to his baseline. He is sleeping well he is not using any CPAP. He is using the trazodone for sleep aid. He is having significant neuropathic pain that is also affecting his sleep therefore will add gabapentin to his sleep regimen. Hopefully he can tolerate 300 mg and is not increase to 600 mg. She she continues on Xarelto for the anticoagulation for the history of pulmonary emboli. This will be a lifelong as long as he can tolerate it. Otherwise patient is without any other complaints. 12/12/2023 the patient is here for pulmonary follow-up visit. Overall the patient is doing well from a respiratory status. He did go to [facility] [place] recently with chest pain. the patient did have a CTA with sister PE. I personally did review the CT scan of the chest. No evidence of any pulmonary emboli. Actually his lung parenchyma was reassuring. No evidence of any active disease. He did undergo a left cardiac catheterization. He was found to have multivessel disease. He did have a drug-eluting stent placed to the RCA. He also had a 70% obstruction of the OM and also another vessel. He was then provided with cardioprotective medications. However, he started developing chest discomfort again. Therefore, he is going to undergo a repeat cardiac catheterization with stenting of the OM 1. in the meantime he is going to continue with his respiratory therapy. The therapy has been affecting beneficial. He does have oxygen at home. We did go for brief walking oximetry the patient is doing a lot better from a oxygen standpoint. Therefore he is able to start cardiac rehab hopefully without any oxygen. He continues use Daliresp with very good effect. Although he has not been able to get it. I will make sure sent to the pharmacy and we may have to do a prior approval. 09/12/2024 the patient is here for a pulmonary follow-up visit. Overall he is doing okay. He does have an issue with his heart where he has had increased heart rates. He may need an ablation or other interventions. His closely would agree with Cardiology. He has to stop cardiac rehab because of that. From a pulmonary standpoint the patient is doing well continues on the Daliresp. He has not had to use any rescue inhalers. He is also using the oxygen with good effect. Will continue those therapies for now. Will follow-up in a year's time. If he has any issues prior to that he will call for an earlier assessment. 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) Gastroparesis Diverticulitis Cholecystectomy planned COPD (chronic obstructive pulmonary disease) Nocturnal hypoxemia Pulmonary emboli Chronic restrictive lung disease Hypogammaglobulinemia Surgical History Status post plication of diaphragm History of colon resection Hx of appendectomy Family History Other HTN (hypertension) Social History Alcohol intake: never Patient Tobacco Use Status: Never used Tobacco Review of Systems Const Denies daytime sleepiness, Denies difficulty sleeping, Denies fatigue, Reports headache(s), Denies malaise, Denies night sweats, Reports snoring, Denies stops breathing during sleep and Reports weight loss ENT Denies change in voice, Reports headache(s), Denies lip swelling, Denies mouth pain, Reports nasal congestion, Reports nasal discharge and Denies tongue swelling Card Reports chest pain and Reports dyspnea on exertion Resp Reports cough, Denies pain on inspiration, Reports dyspnea on exertion and Reports snoring GI Denies abdominal pain Musc Denies no additional complaints Neuro Denies Neuro-related abnormal movements and Reports headache(s) Psych Denies no additional complaints Endo Denies fatigue Adeel/Lymph Denies easy bleeding and Denies lymphadenopathy Aller/Immun Denies lip swelling and Denies tongue swelling Physical Exam Vital Signs: Last Vital Signs Pulse 78 09/12/24 14:35 BP 100/62 09/12/24 14:35 Pulse Ox 96 09/12/24 14:35 Oxygen Delivery Method Room Air 09/12/24 14:35 BMI result Body Mass Index 33.9 Const General: cooperative and comfortable Nutritional Appearance: overweight Orientation/consciousness: patient oriented x3 Limitations: no limitations HEENT Head: Yes normal to inspection Ears: hearing grossly normal bilaterally General nose exam: Normal external nose present Face and sinus: Yes normal facial exam Eyes General: appearance normal, both eyes and all related structures EOM: EOMs intact bilaterally Neck Neck: Yes normal visual inspection Chest Chest palpation & inspection: normal inspection of the chest and no crepitus Resp Effort & Inspection: normal respiratory effort Auscultation: no crackles, no wheezes and diminished lung sounds on the right Cardio Rate: regular rate Heart sounds: S1 normal heart sound present and S2 normal heart sound present GI Inspection: Yes normal to inspection Palpation (GI): Soft to palpation, Tenderness to palpation present (GI) in the RUQ, no guarding and not rigid General: Yes CVA tenderness on the right Back/Spine/Pelvis Back: CVA tenderness Skin Rashes: no rashes Wounds: no wounds Neuro General: patient oriented x3 Gait exam (Neuro): Normal gait present Extrem Other: No LE edema or calf tenderness General: Yes normal to inspection Assessment & Plan Assessment & Plan (1) Paralysis, diaphragm: Comment: Status post surgery Code(s): J98.6 - Disorders of diaphragm Category: Medical (2) COPD (chronic obstructive pulmonary disease): Code(s): J44.9 - Chronic obstructive pulmonary disease, unspecified Category: Medical Qualifiers: COPD type: chronic bronchitis Chronic bronchitis type: mixed simple and mucopurulent Qualified Code(s): J41.8 - Mixed simple and mucopurulent chronic bronchitis Plan: Respiratory therapy Needs to start oxygen supplementation with activity, cont with nocturnal oxygen (3) Pulmonary emboli: Code(s): I26.99 - Other pulmonary embolism without acute cor pulmonale Category: Medical Qualifiers: Acute cor pulmonale presence: without acute cor pulmonale Chronicity: chronic Pulmonary embolism type: other Qualified Code(s): I27.82 - Chronic pulmonary embolism (4) Chronic restrictive lung disease: Comment: Multifactorial Code(s): J98.4 - Other disorders of lung Category: Medical (5) Hypogammaglobulinemia: Code(s): D80.1 - Nonfamilial hypogammaglobulinemia Category: Medical Plan: recheck levels (6) TAMIKA (obstructive sleep apnea): Comment: limitted PSG. No significant Sleep apea noted Code(s): G47.33 - Obstructive sleep apnea (adult) (pediatric) Category: Medical (7) CAD (coronary artery disease): Code(s): I25.10 - Atherosclerotic heart disease of [place] coronary artery without angina pectoris Category: Medical Qualifiers: Associated angina: unspecified whether angina present Coronary Disease-Associated Artery/Lesion type: [place] artery [place] vs. transplanted heart: [place] heart Qualified Code(s): I25.10 - Atherosclerotic heart disease of [place] coronary artery without angina pectoris Plan Continue oxygen continue life long anticoagulation, Xorelto Continue Daliresp continue trazodone Gabapentin 600mg F/U 12 months Coding Level of Care Code Est Pt Level 4 (73091) Diagnoses Paralysis, diaphragm J98.6 Mixed simple and mucopurulent chronic bronchitis J41.8 COPD type: chronic bronchitis Chronic bronchitis type: mixed simple and mucopurulent Other chronic pulmonary embolism without acute cor pulmonale I27.82 Acute cor pulmonale presence: without acute cor pulmonale Chronicity: chronic Pulmonary embolism type: other Chronic restrictive lung disease J98.4 Hypogammaglobulinemia D80.1 TAMIKA (obstructive sleep apnea) G47.33 Coronary artery disease involving [place] coronary artery of [place] heart, unspecified whether angina present I25.10 Associated angina: unspecified whether angina present Coronary Disease-Associated Artery/Lesion type: [place] artery [place] vs. transplanted heart: [place] heart Time Spent (min) 16
--- OUTSIDE RECORDS SUMMARY | 2024-09-12 15:50 | XMS_ITS | Clinical Summary ---
Author Organization [facility] Address [address] [place] [address] Care Team Providers Care Keyboard Action Assembler Name Role Phone Maurice Minor MD Primary Care Provider + [phone] Allergies Active Allergy Reactions Criticality Noted Date Comments Morphine 02/21/2017 Medications Medication Sig Dispensed Refills Start Date End Date Status losartan (COZAAR) tablet 25 mg Take 1 tablet (25 mg total) by mouth daily. 0 Active Magnesium 500 MG CAPS Take 500 mg by mouth daily. 0 Active furosemide (LASIX) 20 MG tablet Take 1 tablet (20 mg total) by mouth daily. 0 Active aspirin 81 MG chewable tablet Chew 1 tablet (81 mg total) by mouth daily. 0 Active ondansetron (ZOFRAN) 8 MG tablet Take 1 tablet (8 mg total) by mouth daily. 0 Active omeprazole (PRILOSEC) 40 MG capsule Take 1 capsule (40 mg total) by mouth daily. 0 Active Acetaminophen (TYLENOL PO) Take 500 mg by mouth daily. 0 Active rivaroxaban (XARELTO) 20 MG TABS tablet Take 1 tablet (20 mg total) by mouth daily. 0 Active HYDROmorphone (DILAUDID) 2 MG tablet Take 1 tablet (2 mg total) by mouth 4 (four) times a day. 0 Active vitamin B-12 (CYANOCOBALAMIN) tablet 1000 mcg Take 1 tablet (1,000 mcg total) by mouth daily. 0 Active predniSONE (DELTASONE) tablet 10 mg Take 1 tablet (10 mg total) by mouth every morning with breakfast. 0 Active trimethobenzamide (TIGAN) 300 MG capsule Take 1 capsule (300 mg total) by mouth 3 (three) times a day. 0 Active atenolol (TENORMIN) tablet 25 mg Take 1 tablet (25 mg total) by mouth daily. 0 Active Dupilumab 200 MG/1.14ML SOSY Inject under the skin. 0 Active amitriptyline (ELAVIL) tablet 25 mg Take 1 tablet (25 mg total) by mouth every night at bedtime. 0 Active nebivolol (BYSTOLIC) 10 MG tablet TAKE 1 TABLET DAILY. 0 10/09/2012 Active Semaglutide (Rybelsus) 14 MG TABS Take by mouth. 0 Active dapagliflozin (FARXIGA) tablet 5 mg Take by mouth. 0 Active linaCLOtide (Linzess) 72 MCG CAPS Take by mouth. 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 03/27/2017 Intractable vomiting with nausea 03/27/2017 Family History Relation Name Status Comments Brother Alive Father Mother Sister Alive Social History Tobacco Use Types Packs/Day Years Used Date Smoking Tobacco: Former Smokeless Tobacco: Never Alcohol Use Standard Drinks/Week Comments No 0 (1 standard drink = 0.6 oz pur e alcohol) Sex and Gender Information Value Date Recorded Sex Assigned at Not on file Gender Identity Not on file Sexual Orientation Not on file Job Start Date Occupation Industry Not on file Not on file Not on file Last Filed Vital Signs Vital Sign Reading Time Taken Comments Blood Pressure 137/75 08/25/2023 11:25 AM EDT Pulse 80 08/25/2023 11:25 AM EDT Temperature 36.6 ??C (97.8 ??F) 08/25/2023 1 1:25 AM EDT Respiratory Rate - - Oxygen Saturation 96% 08/25/2023 11: 25 AM EDT Inhaled Oxygen Concentration - - Weight 120.2 kg (265 lb) 08/25/2023 11: 25 AM EDT patient declined weight in office, took weight at home yesterday Height 190.5 cm (6' 3 ) 02/10/2020 2:23 PM EDT Body Mass Index 33.12 02/10/2020 2:23 PM EDT Plan of Treatment Health Maintenance Due Date Last Done Comments Hepatitis B Vaccines (1 of 3 - 3-dose series) 1965 Hepatitis C Screening 1965 COVID-19 Vaccine (#1) 04/21/1965 Depression Screening 1976 BMI Counseling 1982 Preventative Health Evaluation 1982 DTap / Tdap / Td (1 - Tdap) 10/20/1983 Colon Cancer Screening (Colonoscopy) 2009 Shingrix-Zoster Vaccine (2 of 2) 12/28/2021 11/02/2021 Influenza Vaccine (#1) 2024 1, 03/18/2020, 04/06/2018, Additional history exists Pneumococcal Vaccine Aged Out 09/03/2008 No long er eligible based on patient's age to complete this topic RSV Ped < 20 months Aged Out No longe r eligible based on patient's age to complete this topic Care Teams Keyboard Action Assembler Relationship Specialty Start Date End Date Maurice Minor MD PCP - General Internal Medicine 02/22/17
--- OUTSIDE RECORDS SUMMARY | 2024-09-12 15:51 | XMS_ITS | Clinical Summary ---
Author Organization [facility] Address [address] [facility] [address] [place] [address] Phone Care Team Providers Care Trommel Tender Name Role Phone Maurice Minor MD Primary Care Provider Allergies Active Allergy Reactions Criticality Noted Date Comments Iodinated Contrast Media Medium 04/27/2015 Per patient, prior allergy (20 years ago). Takes Benadryl only prior to scans (no prednisone) Morphine Other (see comments),Itching,Deonte h Low 10/09/2012 Other reaction(s): facial edema, pruitis, rash to diffuse body total body rash Medications allopurinol (ZYLOPRIM) 100 MG tablet Take 100 mg by mouth in the morning and 100 mg in the evening. 9 Active amitriptyline (ELAVIL) 25 MG tablet Take 25 mg by mouth in the morning and 25 mg at noon and 25 mg in the evening. 9 Active aspirin (ST JOY) 81 MG EC tablet Take 1 tablet by mouth 1 (one) time each day Active atenolol (TENORMIN) 25 MG tablet Take 25 mg by mouth 1 (one) time each day Active Dapagliflozin Propanediol 5 MG tablet Take by mouth 3 Active folic acid (FOLVITE) 1 MG tablet Take 1 mg by mouth 9 Active furosemide (LASIX) 20 MG tablet Take 20 mg by mouth 1 (one) time each day Active HYDROmorphone (DILAUDID) 2 MG tablet See Instructions, Take 2.5 tabs PO per day x 2 weeks in divided doses then take 2 tabs a day x 2 weeks, # 63 tablet, 0 Refills, Maintenance, 03/02/23 11:12:00 EDT, [facility], Partial fill upon patient request, 03/03/23, 190.5, cm, 02/20... 3 Active isosorbide mononitrate (IMDUR) 30 MG 24 hr tablet TAKE 1 TABLET BY MOUTH EVERY DAY 3 Active linaCLOtide (Linzess) 72 MCG capsule Take 72 mcg by mouth 3 Active midodrine (PROAMATINE) 2.5 MG tablet Take 5 mg by mouth 3 Active Naloxone HCl (Narcan) 4 MG/0.1ML liquid See Instructions, SPRAY ONCE INTO ONE NOSTRIL MAY REPEAT Q 2 TO 3 MINUTES IN ALTERNATE NOSTRILS IF NO RESPONSE, # 2 each, 0 Refills, Maintenance, 08/11/22 11:55:00 EST, [place], [facility][id number], Partial fill upon patient request., 191, cm, 06/28/22 1... 3 Active omeprazole (PriLOSEC) [address] capsule Take 40 mg by mouth Active ondansetron ODT (ZOFRAN-ODT) 8 MG dispersible tablet Take 1 tablet by mouth 1 (one) time each day Active pantoprazole (PROTONIX) 40 MG EC tablet Take 40 mg by mouth 3 Active rivaroxaban (XARELTO) 20 MG tablet Take 20 mg by mouth 1 (one) time each day 8 Active Roflumilast (Daliresp) 250 MCG tablet Take 2 tablets by mouth 1 (one) time each day Active Rosuvastatin Calcium 20 MG capsule sprinkle Take 20 mg by mouth 2 Active metoprolol succinate XL (TOPROL-XL) 100 MG 24 hr tablet Take 150 mg by mouth 1 (one) time each day 3 Active clopidogrel (PLAVIX) 75 MG tablet Take 1 tablet by mouth 1 (one) time each day 4 Active traZODone (DESYREL) 50 MG tablet Take 50 mg by mouth every night Active gabapentin (NEURONTIN) 300 MG capsule Take 300 mg by mouth in the morning and 300 mg in the evening and 300 mg before bedtime. Active Active Problems Problem Noted Date Diagnosed Date Chronic kidney disease, stage 2 (mild) 4 Type 1 diabetes mellitus wit h diabetic chronic kidney disease 03/27/2024 Acute nontraumatic kidney injury 03/22/2023 03/22/2023 Chronic kidney disease due to hypertension 03/2203/22/2023 Congestive heart failure 03/22/2023 023 Essential hypertension 03/22/2023 Hyperlipidemia 03/22/2023 03/22/2023 Type 2 diabetes mellitus 03/22/2023 023 Adverse reaction to drug 03/22/2023 023 Continuous opioid dependence 03/22/202304/2023 Dependence on supplemental oxygen 03/22/2023 03/22/2023 Finding of activity of daily living 03/22/2023 03/22/2023 Overview (03/22/2023): Update Oswestry Disability Index: 40% ( moderate disability ) and Updated [place]: 47 both on 10/03/2302 @ 1330 JOSE Andujar Updated Oswestry Disability Index 50% (severe disability ) on August 11, 2020updated Oswestry Disability Index: 58% ( severe disability ) on 06/13/18initial Oswestry Disability Index: 54% ( severe disability ) on 07/11/17 H/O: pulmonary embolus 03/22/2023 Overview (03/22/2023): On anticoagulation H/O Spinal surgery 03/22/2023 Overview (03/22/2023): History of colonic resections, right diaphragm plication Hypoxia 03/22/2023 03/22/2023 Infection by methicillin sensitive Staphylococcu s aureus 03/22/2023 03/22/2023 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 Overview (03/22/2023): Postoperative, right side Obese class I 03/22/2023 03/22/2023 Obstructive sleep apnea syndrome 03/22/2023 03/22/2023 Overview (03/22/2023): uses NIVV Postural orthostatic tachycardia syndrome (POTS) 03/22/2023 Shortness of breath 03/22/2023 03/22/2023 Somatoform pain disorder 03/22/2023 023 Tenderness of right upper quadrant of abdomen 03/22/2023 Weight loss 08/10/2022 03/22/2023 COVID-19 02/07/2022 03/22/2023 Overview (03/22/2023): Problem added by Discern Expert Problem added by Discern Expert Headache 02/10/2020 03/22/2023 Herpes zoster with meningitis 02/10/2020 Autonomic neuropathy 04/17/2019 03/22/2023 Catecholamine level - finding 04/17/2019 Multiple subsegmental thromb otic pulmonary emboli without acute cor pulmonale 04/17/2019 Overview (03/12/2024): Replacing diagnoses that were inactivated after the 03/12/24 Regulatory Import Nausea 04/17/2019 03/22/2023 Gastroparesis syndrome 03/27/2017 3 Intractable nausea and vomiting 03/27/2017 03/22/2023 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 03/22/2023 Enchondroma of bone 06/11/2015 03/22/2023 Schwannoma 04/27/2015 03/22/2023 Paralysis of diaphragm 11/27/2012 3 Overview (03/22/2023): Diaphragmatic Paralysis Immunizations Name Administration Dates Next Due Moderna SARS-COV-2 11/02/2021,05/26/2021, 021,09/10/2020 Pneumococcal Polysaccharide 09/03/2008 Shingrix 11/02/2021 Family History Medical History Relation Comments Diabetes Father Heart disease Father Kidney disease Father renal failure Stroke Father Hypertension Mother Stroke Mother Cancer Sibling unspecified type Relation Status Comments Father Mother Sibling Social History Tobacco Use Types Packs/Day Years Used Date Smoking Tobacco: Never Smokeless Tobacco: Never Tobacco Cessation:Counseling Given: Not Answered Alcohol Use Standard Drinks/Week Comments No 0 (1 standard drink = 0.6 oz pur e alcohol) Sex and Gender Information Value Date Recorded Sex Assigned at Not on file Legal Sex Male 4:57 PM EST Gender Identity Not on file Sexual Orientation Not on file Last Filed Vital Signs Vital Sign Reading Time Taken Comments Blood Pressure 120/64 03/27/2024 1:07 PM EDT Pulse 64 03/27/2024 1:07 PM EDT Temperature - - Respiratory Rate - - Oxygen Saturation 97% 03/27/2024 1:07 PM EDT Inhaled Oxygen Concentration - - Weight 120 kg (265 lb) 03/27/2024 1:07 PM EDT Height 193 cm (6' 4 ) 03/23/2023 1:06 PM EDT Body Mass Index 32.26 03/23/2023 1:06 PM EDT Plan of Treatment Upcoming Encounters Date Type Department Care Team (Late st Contact Info) Description 03/26/2025 1:00 PM EDT Office Visit [facility] [address] [phone] Zander Escobar MD [facility] [phone] Health Maintenance Due Date Last Done Comments Hepatitis B Vaccine (1 of 3 - 19+ 3-dose series) 10/19 Pneumococcal Vaccine: Pediat rics (0 to 5 Years) and At-Risk Patients (6 to 64 Years) (2 of 2 - PCV) 09/03/2009 09/03/2008 Colorectal Cancer Screening: Annual FOBT 2013 Colorectal Cancer Screening: Colonoscopy 2013 Colorectal Cancer Screening: Sigmoidoscopy 2013 Diabetes: Hemoglobin A1C 07/12/2020 Diabetes: Ophthalmology Exam 07/12/2020 Diabetes: Pedal Pulse Checked 07/12/2020 Diabetes: Sensory Foot Exam 07/12/2020 Diabetes: Visual Foot Exam 07/12/2020 Influenza Vaccine (#1) 2024 04/06/2018 Insurance [facility] MEDICAID [facility] MEDICAID Care Teams Trommel Tender Relationship Specialty Start Date End Date Maurice Minor MD [address] [place] [address] PCP - General Internal Medicine 03/23/23
--- OUTSIDE RECORDS SUMMARY | 2024-09-12 15:51 | XMS_ITS | Clinical Summary ---
Author Organization [address] [facility] Address [address] [place] [address] Phone Care Team Providers Care Wash House Worker Name Role Phone Maurice Minor MD Primary Care Provider [phone] Allergies Active Allergy Reactions Criticality Noted Date Comments Iodinated Contrast Media Medium 04/27/2015 Per patient, prior allergy (20 years ago). Takes Benadryl only prior to scans (no prednisone) Morphine 07/28/2016 Opioids - Morphine Analogues Swelling,Itching,Othe r,Rash Low 10/09/2012 Other Reaction(s): pruitis, rash to diffuse body total body rash Other reaction(s): facial edema, pruitis, rash to diffuse body total body rash Medications metoprolol succinate (TOPROL-XL) 100 mg 24 hr tablet Take 2 tablets (200 mg total) by mouth 1 (one) time each day. 04/02/2024 Active midodrine (PROAMATINE) 2.5 mg tablet TAKE 1 TABLET BY MOUTH THREE TIMES A DAY 03/13/2024 Active isosorbide mononitrate (IMDUR) 30 mg 24 hr tablet Take 3 tablets (90 mg total) by mouth 1 (one) time each day. Active allopurinoL (ZYLOPRIM) 100 mg tablet Take 1 tablet (100 mg total) by mouth 1 (one) time each day. Active dapagliflozin propanediol (FARXIGA) 10 mg tablet Take by mouth daily. Active traZODone (DESYREL) 50 mg tablet Take 1 Tablet by mouth at bedtime. Active folic acid (FOLVITE) 1 mg tablet Take 1 tablet (1,000 mcg total) by mouth 1 (one) time each day. Active cyclobenzaprine (FLEXERIL) 5 mg tablet Take 2 Tablets by mouth 3 times daily. Active famotidine (PEPCID) 20 mg tablet Take 1 tablet (20 mg total) by mouth 2 (two) times a day. Active pantoprazole (PROTONIX) 40 mg EC tablet Take 1 tablet (40 mg total) by mouth 1 (one) time each day. Active ondansetron (ZOFRAN) 8 mg tablet Take 1 tablet (8 mg total) by mouth as needed. Active amitriptyline (ELAVIL) 25 mg tablet Take 1 Tablet by mouth 3 times daily. Active roflumilast (DALIRESP) 500 mcg tablet Take 500 mcg by mouth daily. 01/03/2019 Active rosuvastatin (CRESTOR) 20 mg tablet Take 1 tablet (20 mg total) by mouth 1 (one) time each day. Active rivaroxaban (XARELTO) 20 mg tablet Take 1 tablet (20 mg total) by mouth 1 (one) time each day. Active furosemide (LASIX) 20 mg tablet Take 20 mg by mouth daily. Active HELIUM-OXYGEN INHL Inhale 2 L into the lungs at bedtime. 2L hs [employer] Active gabapentin (NEURONTIN) 300 mg capsule Take 1 capsule (300 mg total) by mouth 3 (three) times a day. Active dronedarone (Multaq) 400 mg tablet Take 1 tablet (400 mg total) by mouth 2 (two) times a day. 60 tablet 11 05/20/2024 Active clopidogreL (PLAVIX) 75 mg tablet TAKE 1 TABLET BY MOUTH EVERY DAY 90 tablet 2 07/12/2024 Active Active Problems Problem Noted Date Diagnosed Date Irritable bowel syndrome with constipation 09/04 Assessment & Plan (09/04/2024 4:59 PM EDT): Linzess causes diarrhea Amitiza not covered Miralax no help Discussed Trulance pending KUB Orders: XR Abdomen 1 View; Future Paroxysmal atrial tachycardia 05/20/2024 Assessment & Plan (05/20/2024 12:17 PM EST): This 58-year-old gentleman with hypertrophic cardiomyopathy, enlarged atria and RV dysfunction presents with a narrow complex tachycardia with aberrancy from a baseline right bundle branch block. This is almost certainly an atrial tachycardia and I see very little to suggest typical AVNRT. Given the relatively brief spurts of the arrhythmia I am not confident that this will be easily ablated and I do not know whether these are indeed due to pulmonary vein triggers that would respond to a standard PVI. I would not rule out out but I suggest we first start with an antiarrhythmic medication. He is quite limited given his coronary disease and conduction disease on his ECG. The only antiarrhythmic I am comfortable using would be either Multaq or amiodarone and amiodarone is too many side effects for patient this young such that I will try Multaq 400 twice daily. I will have him cut his metoprolol to 100 mg daily from 200 mg daily. If this is effective enough we will see if we can wean back further although his POTS may benefit from the beta-blockade and not sure whether we can completely replace the metoprolol. He will maintain good hydration and avoid alcohol as he has been doing. I will have him back in a few weeks to review his ECG and to assess whether the multaq is working. If he continues to struggle and we would consider a pulmonary vein isolation procedure with electrophysiologic study looking for atrial foci to ablate. Pacemaker and AV node ablation would not be off the table but it is a challenge the down the list. Hyperlipidemia 01/22/2024 Overview (04/17/2024): Last Assessment & Plan: Patient has a history of coronary artery disease as well as diabetes; LDL goal is less than 55. Most recent lipid panel completed 01/23/2024 revealed an LDL of 20; continue rosuvastatin. Palpitations 01/22/2024 Overview (04/17/2024): Last Assessment & Plan: The patient reports an increase in frequency of palpitations lasting up to 15 minutes where he feels as though his Heart is racing; his most recent 48-hour Holter completed for similar symptoms showed symptoms correlated with normal sinus rhythm with first-degree AV block, isolated PACs, and PVCs, and ventricular ectopy with heart rates in the range of 71 to 89 bpm. We discussed repeating ambulatory cardiac monitoring for further evaluation of his palpitations as well as increasing his metoprolol for improved rate control given that his heart rate does remain in the 90s today; however, he declines both stating that he would like to get back to cardiac rehab and give himself some time to see if this settles out on its own. Discussed the potential long-term implications of uncontrolled tachycardia should this be problematic, including but not limited to that of developing a tachyarrhythmia related cardiomyopathy. The patient verbalizes understanding of this and will call the office if he changes his mind or develops new or worsening symptoms. Will continue to readdress this. CAD (coronary artery disease) 01/16/2024 Overview (04/17/2024): WITH NSTEMI Last Assessment & Plan: The patient is now status post stenting to the distal RCA on 12/05/2023 and now staged PCI to OM 2 on 02/27/2024. He reports significant improvement in his previous symptoms, namely his left sided chest pain and overall looks much better today than he has previously. He wishes to return to cardiac rehab and was enocuraged to do so; he was encouraged to return to care for any new or worsening symptoms during this process, seeking emergent medical attention as appropriate. He will continue cardioprotective medical therapies including metoprolol, isosorbide, rosuvastatin, and Plavix in addition to Xarelto (not on aspirin given that he is on Xarelto for history of unprovoked DVTs). Patient advised to seek emergency medical attention by calling 911 if they were to develop severe dyspnea, chest pain that did not resolve with rest, or if they were to faint. Assessment & Plan (05/20/2024 12:18 PM EST): Stable coronary disease status post recent revascularization. Currently on Plavix and Xarelto. Some minor bleeding but tolerating it overall. Continue current anti-ischemic and lipid-lowering regimen. PA (myocardial infarction) 01/16/2024 Unstable angina 01/16/2024 DVT (deep venous thrombosis) 01/15/2024 Abdominal pain 01/10/2024 Chronic, continuous use of opioids 01/10/2024 Elevated blood sugar 01/10/2024 SOB (shortness of breath) 01/10/2024 Deep vein thrombosis (DVT) o f distal vein of both lower extremities 05/19/2022 Diabetes 05/19/2022 Overview (04/17/2024): Last Assessment & Plan: Weight lost and better diet-A1c 7-8 recently Idiopathic peripheral neuropathy 05/19/2022 Overview (04/17/2024): Last Assessment & Plan: Likely contributing to his balance issues; will continue to follow. Left ventricular hypertrophy 05/19/2022 Overview (04/17/2024): Last Assessment & Plan: The patient has a history of LVH but no evidence of amyloid on testing; MRI results were consistent with an infiltrative process like sarcoid but he has normal LV function and no arrhythmias. Most recent echocardiogram completed 01/31/2024 shows severe concentric LVH with normal left ventricular size and systolic function; no significant LVOT, mid ventricle, or apical gradient and no increased gradient with Valsalva. I have reviewed with the patient the importance of a heart healthy lifestyle which includes eating a low-fat low-salt diet, getting regular exercise, maintaining a healthy weight, not smoking, and following up with routine medical care. POTS (postural orthostatic tachycardia syndrome) 05/19/2022 Overview (04/17/2024): Last Assessment & Plan: Patient is no longer followed by neurology in [place] and states that he was told to find a neurologist more locally; he reports that he has not yet done so and he was encouraged to do this. Symptoms appear to be stable at this time; we will not make any changes. COPD (chronic obstructive pulmonary disease) Overview (04/17/2024): Last Assessment & Plan: Continues to follow with pulmonology. Chest pain 02/21/2018 Overview (04/17/2024): I certify that the patient has NEVER had an opiod depency/ opiod abuse problem, MR Hypertension 05/20/2017 Overview (04/17/2024): Last Assessment & Plan: Is well-controlled on current medical therapy; continue metoprolol, isosorbide, and furosemide. Most recent metabolic panel completed 01/23/2024 stable with normal renal function and electrolytes. Obstructive sleep apnea syndrome in adult 2016 Overview (04/17/2024): Last Assessment & Plan: Patient reports this is no longer problematic since he has lost weight; still wearing oxygen as needed at night. He continues to follow with pulmonology as recommended. Pulmonary embolism with infarction 03/08/2017 Overview (04/17/2024): Last Assessment & Plan: History of DVT. On Xarelto which he appears to be tolerating well and without adverse effects; no new concerns. He is aware to seek emergent medical attention for any uncontrolled bleeding, signs or symptoms of GI or other internal bleeding, or for any head injury. Encounters Date Type Department Care Team Description 09/04/2024 9:40 AM EDT Office Visit Gastroenterology - [address] [place] [phone] Enid Rome PA Irritable bowel syndrome with constipation (Primary Dx); Diarrhea, unspecified type 08/05/2024 Telephone Gastroenterology - [address] [place] [phone] Shilpi Kamara MA from Last 3 Months Immunizations Name Administration Dates Next Due Influenza Quadravalent, MDCK , 0.5ml, preservative free (Flucelvax) 6mo and older 04/06/2018 Surgical History Surgery Date Site/Laterality Comments COLONOSCOPY 03/12/2017 - 04/11/2017 inflammatory polyp, unremarkable rectal biopsy and stain for amyloid ESOPHAGOGASTRODUODENOSCOPY 08/10/2022 - 09/09/2022 large amount of retained food in stomach, unremarkable esoph biopsy OTHER SURGICAL HISTORY 01/10/2021 - 02/09/2021 flex sigmoidoscopy - normal mucosa, int rhoids, healthy appearing mucosa at anastamosis Medical History Medical History Date Comments Hypertension 05/20/2017 DX:Hypertension Flank pain DX:Flank pain Hypoxia DX:Hypoxia Class 1 obesity DX:Class 1 obesi ty TAMIKA (obstructive sleep apnea) DX :TAMIKA (obstructive sleep apnea) MSSA (methicillin susceptibl e Staphylococcus aureus) infection DX:MSSA (methicillin susceptible Staphylococcus aureus) infection Limitation due to disability DX: Limitation due to disability Moderate somatic symptom disorder DX:Moderate somatic symptom disorder; COMMENT: WITH PREDOMINANT PAIN Neuropathy of left upper extremity DX:Neuropathy of left upper extremity 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 H/O ileostomy DX:H/O ileostomy ; COMMENT: RLQ Abdominal pain DX:Abdominal jammie n Elevated diaphragm DX:Elevated d iaphragm; COMMENT: right Disorder of phrenic nerve DX:Dis order of phrenic nerve Diverticular disease DX:Divertic ular disease Hyperlipidemia DX:Hyperlipidemi a Family History Medical History Relation Name Comments Other: BRAIN TUMOR Brother Brain Aneurysm Father Hypertension Father Other: MYOCARDIAL INFRACTION Father Stroke Father Hypertension Mother Other: BRAIN TUMOR Mother Other: MYOCARDIAL INFRACTON Mother Stroke Mother Relation Name Status Comments Brother Father Mother Social History Tobacco Use Types Packs/Day Years Used Date Smoking Tobacco: Never Smokeless Tobacco: Never Alcohol Use Standard Drinks/Week Comments Not Currently 0 (1 standard drink = 0.6 oz pur e alcohol) Sex and Gender Information Value Date Recorded Sex Assigned at Not on file Legal Sex Male 4:11 AM EST Gender Identity Not on file Sexual Orientation Not on file Obstetrics History Last Filed Vital Signs Vital Sign Reading Time Taken Comments Blood Pressure 110/78 05/20/2024 11:12 AM EST Pulse 78 05/20/2024 11:12 AM EST Temperature - - Respiratory Rate - - Oxygen Saturation 97% 05/20/2024 11:12 AM EST Inhaled Oxygen Concentration - - Weight 120 kg (265 lb) 09/04/2024 9:58 AM EDT Height 193 cm (6' 4 ) 09/04/2024 9:58 AM EDT Body Mass Index 32.26 09/04/2024 9:58 AM EDT Plan of Treatment Upcoming Encounters Date Type Department Care Team (Late st Contact Info) Description 09/26/2024 1:10 PM EDT Office Visit [facility] - [address] [place] [address] Renee Pepper PA [address] [place] [address] 12/04/2024 10:30 AM EDT Office Visit Gastroenterology - [address] [place] [phone] Enid Rome PA [address] [place] [address] Health Maintenance Due Date Last Done Comments Diabetes: Annual Foot Exam 1974 Diabetes: Annual Retina Eye Exam 1974 DTaP,Tdap,and Td Vaccines (1 - Tdap) 10/20/1983 Hepatitis A Vaccines (1 of 2 - Risk 2-dose series) 10/20/1983 Hepatitis B Vaccines (1 of 3 - 19+ 3-dose series) 10/20/1983 Pneumococcal Vaccine: 50+ Years (2 of 2 - PCV) 09/03/2009 09/03/2008 Pneumococcal Vaccine: Pediatrics (0 to 5 Years) and At-Risk Patients (6 to 64 Years) (2 of 2 - PCV) 09/03/2009 09/03/2008 Diabetes: Annual GFR (Glomerular Filtration Rate) 12/07/2018 12/07/2017 Zoster Vaccines (2 of 2) 12/28/2021 11/02/2021 Cholesterol Screening (Lipid Panel) 05/19/2022 Depression Screening 05/19/2022 HIV Screening 05/19/2022 Hepatitis C Screening 05/19/2022 Social Influencers of Health Screening 05/19/2022 Diabetes: Annual Urine Albumin-Creatinine Ratio (uACR) 05/26/2022 Diabetes: Blood Sugar Control Test (HGBA1C) 05/26/2022 Hypertension/CHF/CAD Annual BMP Blood Test 05/26/2022 12/07/2017 COVID-19 Vaccine ( season) 2024 05/11/2023, 11/02/2021, 05/26/2021, Additional history exists Influenza Vaccine (Season Ended) 2025 04/05/2023, 05/26/2021, 03/18/2020, Additional history exists Colorectal Cancer Screening: Colonoscopy 03/29/2027 03/29/2017 RSV Immunization Adult Patients (1 - 1-dose 75+ series) 10/20/2039 HIB Vaccines Aged Out No longer eligi ble based on patient's age to complete this topic HPV Vaccines Aged Out No longer eligi ble based on patient's age to complete this topic IPV Vaccines Aged Out No longer eligi ble based on patient's age to complete this topic MMR Vaccines Aged Out No longer eligi ble based on patient's age to complete this topic Meningococcal ACWY Vaccine Aged Out N o longer eligible based on patient's age to complete this topic Meningococcal B Vacine Aged Out No lo nger eligible based on patient's age to complete this topic RSV Immunization Patients Under 20 months Aged Out No longer eligible based on patient's age to complete this topic Varicella Vaccines Aged Out No longer eligible based on patient's age to complete this topic Procedures Procedure Name Priority Date/Time Associated Diagnosis Comments EXTERNAL COLONOSCOPY REPORT Routine 03/29/2017 3:30 PM EDT from Last 3 Months or Most Recently Relevant to Health Maintenance Results * External Colonoscopy Report (03/29/2017 3:30 PM EDT) Anatomical Region Laterality Modality Endoscopy us Historical Provider GI~PROCEDURE ORDERABLES F inal Result from Last 3 Months or Most Recently Relevant to Health Maintenance Insurance [facility] [employer] Advance Directives Documents on File Type Date Recorded Patient Services Engineer Expl anation Health Care Decision (hx) 12/16/2016 AD CAGLE DIRECTIVE Health Care Decision (hx) 12/16/2016 AD CAGLE DIRECTIVE Health Care Decision (hx) 12/16/2016 AD CAGLE DIRECTIVE Health Care Decision (hx) 12/16/2016 AD CAGLE DIRECTIVE Health Care Decision (hx) 12/16/2016 AD CAGLE DIRECTIVE Health Care Decision (hx) 12/16/2016 AD CAGLE DIRECTIVE Health Care Decision (hx) 12/16/2016 AD CAGLE DIRECTIVE Health Care Decision (hx) 12/16/2016 AD CAGLE DIRECTIVE Health Care Decision (hx) 12/16/2016 AD CAGLE DIRECTIVE Health Care Decision (hx) 12/16/2016 AD CAGLE DIRECTIVE Health Care Decision (hx) 12/16/2016 AD CAGLE DIRECTIVE Health Care Decision (hx) 12/16/2016 AD CAGLE DIRECTIVE Health Care Decision (hx) 12/16/2016 AD CAGLE DIRECTIVE Health Care Decision (hx) 12/16/2016 AD CAGLE DIRECTIVE Health Care Decision (hx) 12/16/2016 AD CAGLE DIRECTIVE Health Care Decision (hx) 12/16/2016 AD CAGLE DIRECTIVE Health Care Decision (hx) 12/16/2016 AD CAGLE DIRECTIVE Health Care Decision (hx) 12/16/2016 AD CAGLE DIRECTIVE Health Care Decision (hx) 12/16/2016 AD CAGLE DIRECTIVE Health Care Decision (hx) 12/16/2016 AD CAGLE DIRECTIVE Health Care Decision (hx) 12/16/2016 AD CAGLE DIRECTIVE Health Care Decision (hx) 12/16/2016 AD CAGLE DIRECTIVE Health Care Decision (hx) 12/16/2016 AD CAGLE DIRECTIVE Health Care Decision (hx) 12/16/2016 AD CAGLE DIRECTIVE Health Care Decision (hx) 12/16/2016 AD CAGLE DIRECTIVE Health Care Decision (hx) 12/16/2016 AD CAGLE DIRECTIVE Health Care Decision (hx) 12/16/2016 AD CAGLE DIRECTIVE Health Care Decision (hx) 12/16/2016 AD CAGLE DIRECTIVE Health Care Decision (hx) 12/16/2016 AD CAGLE DIRECTIVE Health Care Decision (hx) 12/16/2016 AD CAGLE DIRECTIVE Health Care Decision (hx) 12/16/2016 AD CAGLE DIRECTIVE Health Care Decision (hx) 12/16/2016 AD CAGLE DIRECTIVE Health Care Decision (hx) 12/16/2016 AD CAGLE DIRECTIVE Health Care Decision (hx) 12/16/2016 AD CAGLE DIRECTIVE Health Care Decision (hx) 12/16/2016 AD CAGLE DIRECTIVE Care Teams Wash House Worker Relationship Specialty Start Date End Date Maurice Minor MD [address] [place] [address] PCP - General Internal Medicine 04/26/24
== END 2024-09-12 15:43 | disposition home or self-care (01) ==
LOC: HO.HPS 14:21
PROVIDERS: PCP Internal Medicine; Visit Provider Hospitalist
DX: J98.6 Disorders of diaphragm (principal); J41.8 Mixed simple and mucopurulent chronic bronchitis; I27.82 Chronic pulmonary embolism; J98.4 Other disorders of lung; D80.1 Nonfamilial hypogammaglobulinemia; G47.33 Obstructive sleep apnea (adult) (pediatric); I25.10 Atherosclerotic heart disease of native coronary artery without angina pectoris
CPT/HCPCS: 99214

== ENCOUNTER → 2024-09-12 14:20 | Outpatient (BNVA) | payer OTHER, SELFPAY | PROVIDERS: PCP Internal Medicine; Visit Provider Hospitalist | DX: I25.10 Atherosclerotic heart disease of native coronary artery without angina pectoris (principal); I27.82 Chronic pulmonary embolism; G47.33 Obstructive sleep apnea (adult) (pediatric); J98.6 Disorders of diaphragm; J41.8 Mixed simple and mucopurulent chronic bronchitis; J98.4 Other disorders of lung; D80.1 Nonfamilial hypogammaglobulinemia | CPT/HCPCS: 99212 ==